=== PATIENT | male | born 1960 | race Caucasian/White ===

== ENCOUNTER 2023-06-14 19:13 | Inpatient (IN) | payer BC, SELFPAY ==
--- NOTE | ~2023-06-14 | CT_ITS ---
EXAMINATION: CT LE RT wo con DATE: 06/14/2023 23:02 INDICATION: Right hip periprosthetic fracture TECHNIQUE: High resolution computed tomography (CT) of the right hip was performed without intravenou s contrast. Additional sagittal and coronal reconstructions were performed. Automated exposure contro l and iterative reconstruction technique were employed. The dose-length product was 999.20 mGy-cm. COMPARISON: Radiograph dated 06/17/2023 FINDINGS: Noncemented right total hip arthroplasty. The acetabular component is affixed with 2 screws and remai ns well seated. No fracture in the visualized pelvis. There is a comminuted intratrochanteric/subtroc hanteric fracture of the proximal right femur. The lesser trochanter remains contiguous with the more distal femoral diaphysis with no evident loosening of the stem of the femoral component. There are s ubtle nondisplaced fracture planes involving the greater trochanter which remains minimally displaced relative to the femoral component of the arthroplasty and the main more distal fracture fragment. Th ere are 2 fragments involving the anteromedial aspect of the greater trochanter and the anterolateral intratrochanteric proximal femur which are both displaced and angulated mildly anteriorly which acco unt for the displacement described along the caudal margin of the fracture on the prior radiographs. No other fractures identified along the more distal femur. No right hip or knee joint effusion. No si gnificant hematoma. Postoperative change of a midline anterior pelvic ventral hernia mesh repair. Sal dder and visualized portion of the bowels are unremarkable. No pathologically enlarged right pelvic o r inguinal lymphadenopathy. IMPRESSION: 1. Nonspecific right total hip arthroplasty with comminuted intratrochanteric/subtrochanteric peripro sthetic fracture of the proximal right femur as detailed above. Reviewed, dictated and finalized at location A. NT CAREGIVER IMPRESSION: 1. Nonspecific right total hip arthroplasty with comminuted intratrochanteric/s ubtrochanteric periprosthetic fracture of the proximal right femur as detailed above.
--- NOTE | ~2023-06-14 | XR_ITS ---
EXAMINATION: XR hip RT 2V w AP pelvis, XR femur RT min 2V DATE: 06/14/2023 20:27 INDICATION: Right hip and femur pain post fall TECHNIQUE: 1. Anteroposterior view of the pelvis and anteroposterior and cross-table lateral views of the right hip were obtained. 2. AP and lateral views of the right femur were obtained on overlapping proximal and distal images. COMPARISON: None. FINDINGS: Bilateral noncemented total hip arthroplasties. There is an intertrochanteric periprosthetic fracture at the proximal right femur. There is 6 degrees varus angulation of the femoral diaphysis which morgan ins contiguous with the lesser trochanter relative to the likely loose greater trochanteric fragment. There is 2 cm anterolateral displacement of the caudal margin of the greater trochanteric fragment. No other fractures identified. There is mild joint space narrowing at the medial compartment of the r ight knee and small marginal osteophytes at the lateral and patellofemoral compartments consistent wi th at least mild tricompartmental osteoarthritis. Mild lower lumbar dextrocurvature with mild to mode rate spondylosis. IMPRESSION: 1. Bilateral total hip arthroplasties with intratrochanteric periprosthetic fracture at the proximal right femur with displacement and mild angulation of the greater trochanteric fragment. Reviewed, dictated and finalized at location A. TRATOR IMPRESSION: 1. Bilateral total hip arthroplasties with intratrochanteric periprosthetic fra cture at the proximal right femur with displacement and mild angulation of the greater trochanteric fragment.
--- NOTE | ~2023-06-14 | XR_ITS ---
EXAMINATION: XR chest 1V DATE: 06/14/2023 20:27 INDICATION: Femur fracture post fall TECHNIQUE: frontal view of the chest was obtained. COMPARISON: None FINDINGS: The lungs are clear with no focal airspace opacities, pulmonary edema, pleural effusion or pneumothor ax. Heart size is normal. There are bridging osteophytes at multiple levels in the spine consistent w ith diffuse idiopathic skeletal hyperostosis (DISH). IMPRESSION: 1. No acute cardiopulmonary disease. Reviewed, dictated and finalized at location A. SFORMATION ARCHITECT
[2023-06-14 19:14] VITALS: BP 159/81; PULSE 100; RESP 20; TEMP 36.3; O2SAT 100
[2023-06-14] MEDS: HYDROmorphone HCL INJ (*CRX) 1 MG/ML SYR 0.5 MG IV PUSH ×2 (21:40→22:47)
[2023-06-14] MEDS: ONDANSETRON INJ 4 MG/2 ML VIAL IV PUSH (21:40)
[2023-06-14 21:44] VITALS: BP 133/81; PULSE 107; RESP 18; O2SAT 99
[2023-06-14 22:05] LABS: Basophils Absolute Auto 0.1 K/mm3 (0.0-0.1); Basophils Percent Auto 0.6 % (0.2-1.2); Hematocrit 36.4 % (42.0-52.0); Hemoglobin 12.4 g/dL (14.0-18.0); Immature Granulocyte Absolute 0.02 K/mm3 (0.00-0.031); Immature Granulocyte Percent A 0.3 % (0-0.5); Immature Platelet Fraction Pct 9.1 % (0.9-11.2); Lymphocytes Absolute Auto 1.83 K/mm3 (0.9-3.2); Lymphocytes Percent Auto 23.5 % (18.3-44.2); Mean Corpuscular HGB Conc 34.1 g/dl (32-36); Mean Corpuscular Hemoglobin 37.3 pg (26-34); Mean Corpuscular Volume 109.6 fl (80-100); Mean Platelet Volume 10.2 fl (7.4-10.4); Monocytes Absolute Auto 1.1 K/mm3 (0.1-0.6); Monocytes Percent Auto 14.1 % (2.6-8.5); Neutrophils Absolute Auto 4.8 K/mm3 (1.3-6.7); Neutrophils Percent Auto 61.5 % (45.5-73.1); Platelet Count Result 88 k/mm3 (150-375); Red Blood Count 3.32 M/mm3 (4.6-6.20); Red Cell Distribution Width 11.7 % (11.5-14.5); White Blood Count 7.8 K/mm3 (4.5-10.0)
--- NOTE | 2023-06-14 22:15 | ED.GENADULT ---
[facility] - General Adult General Chief complaint: Extremity Injury, Lower Stated complaint: fall, R hip pain Time Seen by Provider: 06/14/23 21:06 Source: patient Mode of arrival: ambulatory Limitations: no limitations History of Present Illness [facility] narrative: This is a 62-year-old male who presents to the ED for chief complaint of right hip injury that occurred last night. Patient reports that he stepped back off the curb and fell directly back onto the right lateral hip. Reports he has had a bilateral right and left hip replacements done 20+ years ago. Reports pain to the right hip but no further injury. Denies any numbness or weakness. Denies fevers, chills, nausea, vomiting. After interviewing the patient, stepped out with the family member, daughter. She advises that the patient is a daily drinker and never goes to the doctor. No known medical history. Related Data Home Medications Medication Instructions Recorded Confirmed No Home Medications 06/15/23 06/15/23 Allergies Allergy/AdvReac Type Severity Reaction Status Date / Time No Known Allergies Allergy Verified 06/14/23 20:41 Review of Systems Review of Systems: All systems as dictated in [facility] Social History Social History Smoking status: Never smoker Alcohol intake: current Drinks per week: 16 Substance use: current Substance use type: marijuana Do You Feel Safe in your Home?: Yes Lack of Transportation: No Lack of Food: Never True Current Housing: I Have Housing Concerned About Future Housing: No Difficulty Paying Gas/Electric Bills: No Difficulty Paying for Meds: No Currently Unemployed: No Education: High School Diploma/GED Difficulty w/ Childcare or Family Care: No Spiritual care concerns: No Exam Narrative: GENERAL: Well-appearing, well-nourished, and in no acute distress. HEAD: Normocephalic, atraumatic. EYES: PERRLA and EOMI. ENT: Nares clear, no rhinorrhea or epistaxis. Mucous membranes moist. Oropharynx without tonsillar hypertrophy exudate or other lesions. NECK: Supple. No adenopathy or masses. CHEST: No respiratory distress. Clear to auscultation. No wheezes rales or rhonchi HEART: Regular rate and rhythm. No murmur heard. Normal peripheral pulses. ABDOMEN: Soft, nontender, nondistended, normal active bowel sounds. MSK: Significant pain with any motion of the right lower extremity. Neurovascularly intact distally. No significant leg-length change. Left lower extremity benign. Normal range of motion. No edema. SKIN: Warm, dry, no rash. NEURO: Alert and oriented x3. No focal deficits. PSYCH: Normal mood and affect. Course Course Emergency Course: Consult on-call Orthopedics, Dr. Sands. He was able to view the x-rays and does feel that the joint looks stable overall. Recommends contacting Dr. Marino since this was the patient's return surgeon. Consult Orthopedic, Dr. Marino: He was also able to view the x-rays. He is seeing some questionable findings of osteolysis and feels that the patient may need a higher level care with possible operation of this joint. Consult orthopedics, Dr. Vera: He was able to view the images and states that the joint looks very stable. He would recommend CT scan but does not feel the patient would need urgent operation unless the CT scan showed significant instability. Consult orthopedics, Dr. Sands again. He is comfortable with having the patient admitted here for pain control and PT OT. Recommends admission to the hospitalist with history of alcoholism and possible withdrawals. Consult Dr. Garcia (hospitalist): Recommends admission under their service. Agrees with starting Librium here and continuing CIWA protocol. Vital Signs Vital signs: Vital Signs Temperature 97.3 F L 06/14/23 19:14 Pulse Rate 100 06/14/23 19:14 Respiratory Rate 20 06/14/23 19:14 Blood Pressure 159/81 H 06/14/23 19:14 Pulse Oximetry 100 06/14/23
[2023-06-14 22:16] LABS: INR 1.1; Prothrombin Time 14.6 Seconds (11.1-14.7)
[2023-06-14 22:17] LABS: Hypochromasia 1+ (NORMAL); Ovalocytes 1+ (NORMAL); Platelet Estimate Decreased (Adequate); Schistocytes None Seen (NORMAL)
[2023-06-14 22:43] LABS: Alanine Aminotransferase 52 U/L (6-50); Albumin Level 4.1 g/dL (3.5-5.1); Alkaline Phosphatase 67 U/L (38-126); Anion Gap 18 mmol/L (8-16); Aspartate Amino Transferase 107 U/L (17-59); Bilirubin,Total 1.6 mg/dL (0.2-1.3); Blood Urea Nitrogen 12 mg/dL (9-20); Carbon Dioxide 18 mmol/L (22-30); Chloride 98 mmol/L (98-107); Estimated CRCL calculation 108 ml/min; Estimated Glomerular Filt Rate > 60; Glucose 91 mg/dL (65-110); Sodium 134 mmol/L (137-145)
--- NOTE | 2023-06-14 23:02 | PM.IMHP ---
H&P: HPI History of Present Illness Date/Time: 06/14/23 23:02 Chief Complaint: Right hip pain, fall Narrative: This is a 62-year-old male with history of significant alcohol use who presents to the ED for chief complaint of right hip injury that occurred last night.? Patient reports that he stepped back off the curb and fell directly back onto the right lateral hip.? And since this incident, he has unbearable right hip pain, he tried to be await twice but now is not possible, pain is worsened by movement of the right hip, denied hitting his head or losing consciousness, denied back pain or pain in any other part of his body. reports he has had a bilateral right and left hip replacements done 20+ years ago.? Reports pain to the right hip but no further injury.? Denies any numbness or weakness.? Denies fevers, chills, nausea, vomiting. He was evaluated in the ER and found to have right periprosthetic intertrochanteric fracture of the right femoral, orthopedic was consulted at high level and after reviewing his imaging stated the patient would not any operative intervention as fracture is pretty stable, and this was agreeable to orthopedic in of facility, I was called to admit this patient for pain control. Patient reported pain of 8/10, just received Dilaudid, denied any other symptoms Review of Systems Review of Systems: All systems reviewed & are unremarkable except as noted in HPI and below Meds Home Medications and Allergies Allergies Allergy/AdvReac Type Severity Reaction Status Date / Time No Known Allergies Allergy Verified 06/14/23 20:41 Vital Signs Vital Signs - 24 hr 06/14/23 19:14 06/14/23 21:44 Temperature 97.3 F L Pulse Rate 100 107 H Respiratory Rate 20 18 Blood Pressure 159/81 H 133/81 Pulse Oximetry 100 99 Oxygen Delivery Room Air Exam Narrative: GENERAL: Well-appearing, well-nourished, and in no acute distress. HEAD: Normocephalic, atraumatic. EYES: PERRLA and EOMI. ENT: Nares clear, no rhinorrhea or epistaxis.? Mucous membranes moist.? Oropharynx without tonsillar hypertrophy exudate or other lesions. NECK: Supple.? No adenopathy or masses.? CHEST: No respiratory distress. Clear to auscultation. No wheezes rales or rhonchi HEART: Regular rate and rhythm.? No murmur heard.? Normal peripheral pulses. ABDOMEN: Soft, nontender, nondistended, normal active bowel sounds. MSK: Significant restriction range of motion on the right lower extremity due to pain. Sensation and circulation intact on the right lower extremity SKIN: Warm, dry, no rash. NEURO: Alert and oriented x3. No focal deficits.? PSYCH: Normal mood and affect. ? H&P: Results Labs Labs: Short CBC 06/14/23 Range/Units 21:58 WBC 7.8 (4.5-10.0) K/mm3 Hgb 12.4 L (14.0-18.0) g/dL Hct 36.4 L (42.0-52.0) % Plt Count 88 L (150-375) k/mm3 BMP 06/14/23 21:58 Sodium 134 L Chloride 98 Carbon Dioxide 18 L BUN 12 Creatinine 0.60 L Glucose 91 Calcium 9.0 Liver Function 06/14/23 Range/Units 21:58 Total Bilirubin 1.6 H (0.2-1.3) mg/dL AST 107 H (17-59) U/L ALT 52 H (6-50) U/L Alkaline Phosphatase 67 (38-126) U/L Albumin 4.1 (3.5-5.1) g/dL Imaging ct pelvis: Radiologist's impression: IMPRESSION: 1. Nonspecific right total hip arthroplasty with comminuted intratrochanteric/subtrochanteric periprosthetic fracture of the proximal right femur as detailed above. Assessment and Plan Assessment and plan (1) Periprosthetic fracture around internal prosthetic right hip joint, initial encounter: Code(s): M97.01XA - Periprosthetic fracture around internal prosthetic right hip joint, initial encounter Status: Acute (2) Intractable pain: Code(s): R52 - Pain, unspecified Status: Acute (3) History of alcohol use: Code(s): Z87.898 - Personal history of other specified conditions Status: Acute Plan Patient will be admitted for pain cont
[2023-06-14] MEDS: chlordiazePOXIDE (*CRX) 25 MG CAPSULE PO (23:12)
[2023-06-14 23:21] LABS: Potassium 3.8 mmol/L (3.4-5.0)
[2023-06-14] MEDS: SODIUM CHLORIDE 0.9% IV 1,000 ML 999 ML IV CONT (23:21)
[2023-06-14 23:25] LABS: Fractional Inspired Oxygen 21 %; HCO3 VBG 18.6 mEq/l (24.0-30.0); PO2 VBG 53.1 mmHg (35.0-45.0)
[2023-06-14 23:28] LABS: pH VBG 7.454 (7.300-7.400)
[2023-06-14 23:29] LABS: Device ROOM AIR; PCO2 VBG 27.1 mmHg (42.0-48.0)
[2023-06-15] VITALS (12 sets, daily range): BP systolic 133–143; BP diastolic 67–83; PULSE 65–167; RESP 19–22; TEMP 36.4–38.1; O2SAT 97–100; BMI 29.5
[2023-06-15] MEDS: HYDROcodone/acetaminophen (*CRX) 5-325 MG TABLET 1 TAB PO ×5 (00:37→23:47)
[2023-06-15] MEDS: HYDROmorphone HCL INJ (*CRX) 1 MG/ML SYR IV PUSH ×5 (00:38→20:13)
[2023-06-15] MEDS: SODIUM CHLORIDE 0.9% IV 1,000 ML 999 ML IV CONT (00:39)
[2023-06-15] MEDS: SODIUM CHLORIDE 0.9% IV 1,000 ML 125 ML IV CONT ×3 (00:39→19:50)
[2023-06-15] MEDS: ONDANSETRON INJ 4 MG/2 ML VIAL IV PUSH ×6 (01:00→23:51)
[2023-06-15 05:04] LABS: Appearance Urine Clear (Clear); Bacteria Urine None Seen /hpf; Bilirubin Urine Negative (Negative); Blood Urine Negative (Negative); Color Urine Dark Yellow (Yellow); Glucose Urine UA Negative (Negative); Ketones Urine 4+ mg/dL (Negative); Leukocyte Esterase Ur Negative LEU/UL (Negative); Nitrate Urine Negative (Negative); Protein Urine Trace mg/dL (Negative); RBC Urine 0-2 /hpf (0-2); Specific Grav Ur 1.024 (1.001-1.035); Squamous Epithelial Cell Urine Occasional /hpf (Few); WBC Urine 0-5 /hpf; pH Urine 5.5 (5.0-9.0)
[2023-06-15 05:05] LABS: Add Urine Microscopic? YES
[2023-06-15 06:19] LABS: Basophils Percent Auto 0.7 % (0.2-1.2); Eosinophils Percent Auto 0.2 % (0-4.4); Hematocrit 32.8 % (42.0-52.0); Hemoglobin 10.8 g/dL (14.0-18.0); Immature Granulocyte Absolute 0.02 K/mm3 (0.00-0.031); Immature Granulocyte Percent A 0.4 % (0-0.5); Immature Platelet Fraction Pct 10.4 % (0.9-11.2); Lymphocytes Absolute Auto 1.31 K/mm3 (0.9-3.2); Lymphocytes Percent Auto 24.4 % (18.3-44.2); Mean Corpuscular HGB Conc 32.9 g/dl (32-36); Mean Corpuscular Hemoglobin 37.6 pg (26-34); Mean Corpuscular Volume 114.3 fl (80-100); Mean Platelet Volume 11.2 fl (7.4-10.4); Monocytes Absolute Auto 0.8 K/mm3 (0.1-0.6); Monocytes Percent Auto 14.9 % (2.6-8.5); Neutrophils Absolute Auto 3.2 K/mm3 (1.3-6.7); Neutrophils Percent Auto 59.4 % (45.5-73.1); Platelet Count Result 74 k/mm3 (150-375); Red Blood Count 2.87 M/mm3 (4.6-6.20); Red Cell Distribution Width 11.8 % (11.5-14.5); White Blood Count 5.4 K/mm3 (4.5-10.0)
[2023-06-15 06:29] LABS: Anion Gap 12 mmol/L (8-16); Blood Urea Nitrogen 11 mg/dL (9-20); Calcium 7.8 mg/dL (8.4-10.2); Carbon Dioxide 22 mmol/L (22-30); Chloride 100 mmol/L (98-107); Estimated CRCL calculation 108 ml/min; Estimated Glomerular Filt Rate > 60; Glucose 101 mg/dL (65-110); Potassium 4.2 mmol/L (3.4-5.0); Sodium 134 mmol/L (137-145)
[2023-06-15] MEDS: THIAMINE HCL 100 MG TABLET PO (07:36)
[2023-06-15] MEDS: chlordiazePOXIDE (*CRX) 25 MG CAPSULE PO ×2 (07:36→15:19)
--- NOTE | 2023-06-15 07:55 | PM.CNOR ---
Assessment and Plan Assessment and plan (1) Periprosthetic fracture around internal prosthetic right hip joint, initial encounter: Code(s): M97.01XA - Periprosthetic fracture around internal prosthetic right hip joint, initial encounter Status: Acute Assessment and Plan: Fall 2 nights ago with right proximal femur periprosthetic fracture. Arthroplasty performed 20 years ago. No problems prior to the incident. Comminuted fracture of the greater trochanter. Discussed with [facility] orthopedic reconstructive team who recommended CT scan. CT scan performed last night which showed comminuted fracture involving mainly the greater trochanter. Femoral stem appears to be well seated and fixed with no loosening. The medial aspect of the femur, lesser trochanter and medial calcar appear to be intact to the distal femur. Patient is high surgical risk given history and rehab potential. High risk for infection. At this time the fracture appears amenable to non operative treatment. Evaluation by the reconstructive specialty surgery team at [facility] possibly an option if the patient desires. At this point pain control seems to be the main issue. We will try to mobilize as tolerated with PT/OT. Would expect healing time over the next 6 weeks. Will need close follow-up to evaluate hip arthroplasty for signs of loosening. History of Present Illness HPI Consult date: 06/15/23 Requesting physician: Kee Leos PA-C Chief complaint: R Hip Periprosthetic Fracture, Alcholism Narrative: 62-year-old gentleman who is 20 years status post right total hip arthroplasty who fell 2 nights ago. Was outside on a curb and fell onto the right hip. Right hip pain. Tried to take care of himself at home but when pain increased he presented to the emergency room. Found to have right proximal femur fracture. Admitted for further evaluation and care. Denies numbness or tingling. Denies other injury at time. Complains of right hip pain. Denies loss of consciousness. Review of Systems Constitutional: Constitutional: Denies fever(s) Eyes: Eyes: Denies blurry vision ENT: Reports Normal hearing present Cardiovascular: Cardiovascular: Denies chest pain and Denies dyspnea Respiratory: Respiratory: Denies dyspnea and Denies wheezing Gastrointestinal: Gastrointestinal: Denies abdominal pain Genitourinary: Genitourinary: Denies urinary urgency Musculoskeletal: Musculoskeletal: Reports as per HPI and Denies numbness Integumentary/Breasts: Skin/Breast: Denies changing lesions and Denies sores Neurologic: Reports Normal hearing present, Denies behavioral changes, Denies confusion, Denies numbness and Denies convulsions Psychiatric: Psychiatric: Denies behavioral changes, Denies confusion and Denies hallucinations Endocrine: Endocrine: Denies heat intolerance Hematologic/Lymphatic: Hematologic/Lymphatic: Denies easy bleeding Allergic/Immunologic: Allergic/Immunologic: Denies wheezing PMFSH Social History Social History Smoking status: Never smoker Alcohol intake: current Drinks per week: 16 Substance use: current Substance use type: marijuana Do You Feel Safe in your Home?: Yes Lack of Transportation: No Lack of Food: Never True Current Housing: I Have Housing Concerned About Future Housing: No Difficulty Paying Gas/Electric Bills: No Difficulty Paying for Meds: No Currently Unemployed: No Education: High School Diploma/GED Difficulty w/ Childcare or Family Care: No Spiritual care concerns: No Meds Home Medications and Allergies Home Medications Medication Instructions Recorded Confirmed Type No Home Medications 06/15/23 06/15/23 History Allergies Allergy/AdvReac Type Severity Reaction Status Date / Time No Known Allergies Allergy Verified 06/14/23 20:41 Vital Signs Vital Signs - 24 hr 06/14/23 19:14 06/14/23 21:44 06/15
--- NOTE | 2023-06-15 12:58 | PM.IMPN ---
Progress Note: A&P Assessment and Plan (1) Periprosthetic fracture around internal prosthetic right hip joint, initial encounter: Code(s): M97.01XA - Periprosthetic fracture around internal prosthetic right hip joint, initial encounter Status: Acute Assessment and Plan: Patient lost his balance and had a fall resulting in a right periprosthetic intertrochanteric fracture of right frmur. Orthopedics consulted. Due to high surgical wrist will do non operative management at this time. ?Evaluation by the reconstructive specialty surgery team at [facility] possibly an option if the patient desires. PT and OT ordered. Analgesics as needed weight-bearing as tolerated (2) Intractable pain: Code(s): R52 - Pain, unspecified Status: Acute Assessment and Plan: SEE ABOVE (3) History of alcohol use: Code(s): Z87.898 - Personal history of other specified conditions Status: Acute Assessment and Plan: Since patient has history of significant alcohol use, he has been started on Librium for CIWA score greater than 12 Ativan for CIWA off between 8 and 12 CIWA monitoring scoring. Subjective Date/time seen: 06/15/23 12:58 Interval history: Patient still having a pretty significant amount of pain. he is working with PT and OT today. I suspect the patient will likely need some type of rehab. Weightbearing status is as tolerated. Patient denying any numbness or tingling in his foot or leg. Exam Narrative: GENERAL: Comfortable, no acute distress HENMT: moist mucous membranes EYES: EOM intact b/l NECK: no lymphadenopathy RESPIRATORY: clear to auscultation CARDIO: RRR GI: soft, nontender, bowel sounds present SKIN: no rashes EXTREMITIES: Minimal movement of her right leg Objective Data Vital Signs Vital Signs: Vital Signs - 24 hr 06/14/23 19:14 06/14/23 21:44 06/15/23 00:44 Temperature 97.3 F L 100.6 F H Pulse Rate 100 107 H 82 Respiratory Rate 20 18 19 Blood Pressure 159/81 H 133/81 133/67 Pulse Oximetry 100 99 99 Oxygen Delivery Room Air 06/15/23 00:00 06/15/23 04:00 06/15/23 06:00 Temperature 97.5 F L Pulse Rate 68 76 Respiratory Rate 19 Blood Pressure 136/73 Pulse Oximetry 99 100 Oxygen Delivery Room Air Intake/Output Intake/Output: Intake & Output 06/12/23 06/13/23 06/14/23 06/15/23 23:59 23:59 23:59 23:59 Intake Total 2840 Output Total 450 Balance 2390 Meds/Results Medications: Active Medications Generic Name Dose Route Start Last Admin Trade Name Freq PRN Reason Stop Dose Admin Hydrocodone Bitart/Acetaminophen 1 tab 06/14/23 23:32 06/15/23 12:19 Hydrocodone/Acetaminophen (*Crx) 5-325 Mg Tablet PO 1 tab Q6H PRN Administration Pain Rated 4-6 Chlordiazepoxide HCl 25 mg 06/14/23 23:02 06/15/23 07:36 Chlordiazepoxide (*Crx) 25 Mg Capsule PO 25 mg Q6H PRN Administration Withdrawal Hydromorphone HCl 1 mg 06/15/23 00:27 06/15/23 09:59 Hydromorphone Hcl Inj (*Crx) 1 Mg/Ml Syr IV PUSH 1 mg Q4H PRN Administration Pain Rated 7-10 Sodium Chloride 1,000 mls @ 125 mls/hr 06/14/23 23:00 06/15/23 10:07 Normal Saline Iv IV CONT 125 mls/hr .Q8H FERNANDO Administration Ondansetron HCl 4 mg 06/14/23 22:59 06/15/23 12:18 Ondansetron Inj 4 Mg/2 Ml Vial IV PUSH 4 mg Q4H PRN Administration Nausea Thiamine HCl 100 mg 06/15/23 09:00 06/15/23 07:36 Thiamine Hcl 100 Mg Tablet PO 100 mg QAM FERNANDO Administration Radiology Results: ITS Impressions Femur X-Ray 06/14/23 20:42 IMPRESSION: 1. Bilateral total hip arthroplasties with intratrochanteric periprosthetic fracture at the proximal right femur with displacement and mild angulation of the greater trochanteric fragment. Hip/Pelvis X-Ray 06/14/23 20:42
[2023-06-16] VITALS (11 sets, daily range): BP systolic 133–161; BP diastolic 70–78; PULSE 72–96; RESP 18–20; TEMP 35.7–37.2; O2SAT 96–100
[2023-06-16] MEDS: SODIUM CHLORIDE 0.9% IV 1,000 ML 125 ML IV CONT (03:36)
[2023-06-16] MEDS: HYDROmorphone HCL INJ (*CRX) 1 MG/ML SYR IV PUSH ×2 (03:37→11:09)
[2023-06-16 06:04] LABS: Hemoglobin 9.9 g/dL (14.0-18.0); Immature Platelet Fraction Pct 12.3 % (0.9-11.2); Mean Corpuscular HGB Conc 34.1 g/dl (32-36); Mean Corpuscular Hemoglobin 37.9 pg (26-34); Mean Corpuscular Volume 111.1 fl (80-100); Mean Platelet Volume 11.2 fl (7.4-10.4); Platelet Count Result 58 k/mm3 (150-375); Red Blood Count 2.61 M/mm3 (4.6-6.20); Red Cell Distribution Width 11.4 % (11.5-14.5); White Blood Count 3.7 K/mm3 (4.5-10.0)
[2023-06-16 06:26] LABS: Anion Gap 3 mmol/L (8-16); Blood Urea Nitrogen 6 mg/dL (9-20); Calcium 8.2 mg/dL (8.4-10.2); Carbon Dioxide 28 mmol/L (22-30); Chloride 100 mmol/L (98-107); Estimated CRCL calculation 128 ml/min; Estimated Glomerular Filt Rate > 60; Glucose 109 mg/dL (65-110); Potassium 3.5 mmol/L (3.4-5.0); Sodium 131 mmol/L (137-145)
[2023-06-16] MEDS: HYDROcodone/acetaminophen (*CRX) 5-325 MG TABLET 1 TAB PO ×2 (06:39→13:23)
[2023-06-16] MEDS: THIAMINE HCL 100 MG TABLET PO (08:14)
--- NOTE | 2023-06-16 12:38 | PM.PNORT ---
Progress Note: A&P Assessment and Plan (1) Periprosthetic fracture around internal prosthetic right hip joint, initial encounter: Code(s): M97.01XA - Periprosthetic fracture around internal prosthetic right hip joint, initial encounter Status: Acute Assessment and Plan: History, exam and CT scan reviewed. Radiographs reveal a comminuted fracture of the greater trochanter. CT scan showed comminuted fracture involving mainly the greater trochanter. Femoral stem appears to be well seated and fixed with no loosening. The medial aspect of the femur, lesser trochanter and medial calcar appear to be intact to the distal femur. Patient is high surgical risk given history and rehab potential. High risk for infection. Continue non operative treatment. PT/OT with [facility] Pain Control. Ice Dispo: Home when cleared by PT/OT and medicine team Follow up with our office in [address] Marino who performed surgery 22 years ago. May eventually require referral to [facility] orthopedics for reconstruction depending on progress. Time Spent With Patient Time: Reviewed history, exam, radiographs and current labs with attending MD and covering surgeon, Dr. Sands, who agrees with current plan as indicated above. No further recommendations from Dr. Sands at this time. Subjective Subjective Date/Time Seen: 06/16/23 12:38 Interval history: Patient doing well. Eating at time of exam. No new concerns. Does not feel ready to discharge but is overall feeling better. Review of Systems Constitutional: Constitutional: Denies fever(s) Eyes: Eyes: Denies blurry vision ENT: Reports Normal hearing present Cardiovascular: Cardiovascular: Denies chest pain and Denies dyspnea Respiratory: Respiratory: Denies dyspnea and Denies wheezing Gastrointestinal: Gastrointestinal: Denies abdominal pain Genitourinary: Genitourinary: Denies urinary urgency Musculoskeletal: Musculoskeletal: Reports as per HPI and Denies numbness Integumentary/Breasts: Skin/Breast: Denies changing lesions and Denies sores Neurologic: Reports Normal hearing present, Denies behavioral changes, Denies confusion, Denies numbness and Denies convulsions Psychiatric: Psychiatric: Denies behavioral changes, Denies confusion and Denies hallucinations Endocrine: Endocrine: Denies heat intolerance Hematologic/Lymphatic: Hematologic/Lymphatic: Denies easy bleeding Allergic/Immunologic: Allergic/Immunologic: Denies wheezing Exam Const: General: No confusion Orientation/consciousness: patient oriented x3 and No confusion HENMT: Head: normal to inspection, normocephalic and atraumatic Eyes: Conjunctivae: conjunctivae normal Sclera: sclerae normal Neck: Neck: supple and nontender Chest: Chest palpation & inspection: normal inspection of the chest Resp: Effort & Inspection: normal respiratory effort and no audible wheezes Cardio: Rate: regular rate Rhythm: regular rhythm GI: GI Palp: No abdominal tenderness and Yes Soft to palpation : General: Yes deferred Skin: General skin exam: no rashes or lesions noted Neuro: General: patient oriented x3 and No confusion Extrem: General: capillary refill normal Right upper extremity: normal to inspection Left upper extremity: normal to inspection Right lower extremity: hip/thigh Details: tenderness Location: of the hip Location: laterally and swelling Location: at the hip ( mild), ankle ( able to actively flex and extend ankle) Details: no tenderness and foot Details: normal capillary refill, toes with normal ROM, vascular exam Details: dorsalis pedis pulse present and normal capillary refill and motor-sensory exam Details: light-touch normal Location: in all toes; no tenderness Left lower extremity: normal to inspection, hip/thigh Details: no tenderness and no swelling, lower leg, ankle (no calf tenderness) Details: normal ROM; no tenderness and foot Details: normal capillary refill, vascular exam D
--- NOTE | 2023-06-16 14:34 | PM.IMPN ---
Progress Note: A&P Assessment and Plan (1) Periprosthetic fracture around internal prosthetic right hip joint, initial encounter: Code(s): M97.01XA - Periprosthetic fracture around internal prosthetic right hip joint, initial encounter Status: Acute Assessment and Plan: Patient lost his balance and had a fall resulting in a right periprosthetic intertrochanteric fracture of right frmur. Orthopedics consulted. Due to high surgical wrist will do non operative management at this time. Evaluation by the reconstructive specialty surgery team at [facility] possibly an option if the patient desires. PT and OT ordered. Analgesics as needed. encourage p.o. rather than IV. weight-bearing as tolerated (2) Intractable pain: Code(s): R52 - Pain, unspecified Status: Acute Assessment and Plan: SEE ABOVE (3) History of alcohol use: Code(s): Z87.898 - Personal history of other specified conditions Status: Acute Assessment and Plan: Since patient has history of significant alcohol use, he has been started on Librium for CIWA score greater than 12 Ativan for CIWA off between 8 and 12 CIWA monitoring scoring. Subjective Date/time seen: 06/16/23 14:34 Interval history: Patient continued to have pain and requiring IV pain medication. Transition him to p.o. medication with IV breakthrough pain. Discussion with care coordination about patient's discharge planning and as of right now patient will be discharged home. He is declining home health at this time. he denies any paresthesias or tingling in his lower extremities, chest pain, shortness a breath, nausea or vomiting. Exam Narrative: GENERAL: Comfortable, no acute distress HENMT: moist mucous membranes EYES: EOM intact b/l NECK: no lymphadenopathy RESPIRATORY: clear to auscultation CARDIO: RRR GI: soft, nontender, bowel sounds present SKIN: no rashes EXTREMITIES: Minimal movement of her right leg Objective Data Vital Signs Vital Signs: Vital Signs - 24 hr 06/15/23 15:19 06/15/23 16:19 06/15/23 16:00 Temperature Pulse Rate 71 Pulse Rate [Monitor] 167 H Respiratory Rate Blood Pressure Pulse Oximetry Oxygen Delivery Room Air 06/15/23 20:10 06/15/23 20:10 06/15/23 20:02 Temperature Pulse Rate 72 Pulse Rate [Monitor] 73 Respiratory Rate Blood Pressure 142/83 H Pulse Oximetry Oxygen Delivery Room Air 06/15/23 21:44 06/16/23 00:02 06/16/23 04:19 Temperature 97.8 F Pulse Rate 69 72 77 Pulse Rate [Monitor] Respiratory Rate 20 Blood Pressure 143/71 H Pulse Oximetry 98 Oxygen Delivery 06/16/23 04:00 06/16/23 06:00 06/16/23 08:10 Temperature 97.8 F Pulse Rate 80 Pulse Rate [Monitor] 73 88 Respiratory Rate 18 Blood Pressure 143/71 H 133/71 137/70 Pulse Oximetry 96 Oxygen Delivery 06/16/23 08:10 Temperature Pulse Rate Pulse Rate [Monitor] Respiratory Rate Blood Pressure Pulse Oximetry Oxygen Delivery Room Air Intake/Output Intake/Output: Intake & Output 06/13/23 06/14/23 06/15/23 06/16/23 23:59 23:59 23:59 23:59 Intake Total 4080 2958 Output Total 1850 1300 Balance 2230 1658 Meds/Results Medications: Active Medications Generic Name Dose Route Start Last Admin Trade Name Freq PRN Reason Stop Dose Admin Hydrocodone Bitart/Acetaminophen 1 tab 06/14/23 23:32 06/16/23 13:23 Hydrocodone/Acetaminophen (*Crx) 5-325 Mg Tablet PO 1 tab Q6H PRN Administration Pain Rated 4-6 Chlordiazepoxide HCl 25 mg 06/14/23 23:02 06/15/23 15:19 Chlordiazepoxide (*Crx) 25 Mg Capsule PO 25 mg Q6H PRN Administration Withdrawal Hydromorphone HCl 1 mg 06/15/23 00:27 06/16/23 11:09 Hydromorphone Hcl Inj (*Crx) 1 Mg/Ml Syr IV PUSH 1 mg Q4H PRN Administration Pain Rated 7-10 Lorazepam 0.5 mg 06/15/23 13:04 Lorazepam Inj (*Crx) 2 Mg/Ml Vial IV
[2023-06-16] MEDS: oxyCODONE HCL (*CRX) 5 MG TAB IR PO ×2 (16:39→20:42)
[2023-06-17] VITALS (9 sets, daily range): BP systolic 130–142; BP diastolic 79–90; PULSE 81–105; RESP 14–16; TEMP 36.3–36.8; O2SAT 96–99
[2023-06-17] MEDS: oxyCODONE HCL (*CRX) 5 MG TAB IR PO ×4 (02:25→20:47)
[2023-06-17 06:46] LABS: Hematocrit 30.1 % (42.0-52.0); Hemoglobin 10.1 g/dL (14.0-18.0); Immature Platelet Fraction Pct 11.7 % (0.9-11.2); Mean Corpuscular HGB Conc 33.6 g/dl (32-36); Mean Corpuscular Hemoglobin 38.1 pg (26-34); Mean Corpuscular Volume 113.6 fl (80-100); Mean Platelet Volume 12.1 fl (7.4-10.4); Platelet Count Result 70 k/mm3 (150-375); Red Blood Count 2.65 M/mm3 (4.6-6.20); Red Cell Distribution Width 11.4 % (11.5-14.5); White Blood Count 4.1 K/mm3 (4.5-10.0)
[2023-06-17 06:58] LABS: Alanine Aminotransferase 28 U/L (6-50); Alkaline Phosphatase 56 U/L (38-126); Anion Gap 5 mmol/L (8-16); Aspartate Amino Transferase 55 U/L (17-59); Bilirubin,Total 1.1 mg/dL (0.2-1.3); Blood Urea Nitrogen 4 mg/dL (9-20); Calcium 8.6 mg/dL (8.4-10.2); Carbon Dioxide 29 mmol/L (22-30); Chloride 99 mmol/L (98-107); Estimated CRCL calculation 155 ml/min; Estimated Glomerular Filt Rate > 60; Glucose 109 mg/dL (65-110); Potassium 3.2 mmol/L (3.4-5.0); Sodium 133 mmol/L (137-145)
--- NOTE | 2023-06-17 09:51 | PM.PNORT ---
Progress Note: A&P Assessment and Plan (1) Periprosthetic fracture around internal prosthetic right hip joint, initial encounter: Code(s): M97.01XA - Periprosthetic fracture around internal prosthetic right hip joint, initial encounter Status: Acute Assessment and Plan: History, exam and CT scan reviewed. Radiographs reveal a comminuted fracture of the greater trochanter. CT scan showed comminuted fracture involving mainly the greater trochanter. Femoral stem appears to be well seated and fixed with no loosening. The medial aspect of the femur, lesser trochanter and medial calcar appear to be intact to the distal femur. Patient is high surgical risk given history and rehab potential. High risk for infection. Continue non operative treatment. PT/OT with [facility]. Ice Dispo: Home when cleared by PT/OT and medicine team. Okay to d/c from orthopedic standpoint. Follow up with our office in [address] Marino who performed surgery 22 years ago. May eventually require referral to [facility] orthopedics for reconstruction depending on progress. Time Spent With Patient Time: Reviewed history, exam, radiographs and current labs with attending MD and covering surgeon, Dr. Sands, who agrees with current plan as indicated above. No further recommendations from Dr. Sands at this time. Subjective Subjective Date/Time Seen: 06/17/23 09:51 Interval history: Patient doing well. Eating at time of exam. No new concerns. He reports working veery well with PT/OT yesterday and doing a good amount of walking. He is now in more pain today due to this. Review of Systems Constitutional: Constitutional: Denies fever(s) Eyes: Eyes: Denies blurry vision ENT: Reports Normal hearing present Cardiovascular: Cardiovascular: Denies chest pain and Denies dyspnea Respiratory: Respiratory: Denies dyspnea and Denies wheezing Gastrointestinal: Gastrointestinal: Denies abdominal pain Genitourinary: Genitourinary: Denies urinary urgency Musculoskeletal: Musculoskeletal: Reports as per HPI and Denies numbness Integumentary/Breasts: Skin/Breast: Denies changing lesions and Denies sores Neurologic: Reports Normal hearing present, Denies behavioral changes, Denies confusion, Denies numbness and Denies convulsions Psychiatric: Psychiatric: Denies behavioral changes, Denies confusion and Denies hallucinations Endocrine: Endocrine: Denies heat intolerance Hematologic/Lymphatic: Hematologic/Lymphatic: Denies easy bleeding Allergic/Immunologic: Allergic/Immunologic: Denies wheezing Exam Const: General: No confusion Orientation/consciousness: patient oriented x3 and No confusion HENMT: Head: normal to inspection, normocephalic and atraumatic Eyes: Conjunctivae: conjunctivae normal Sclera: sclerae normal Neck: Neck: supple and nontender Chest: Chest palpation & inspection: normal inspection of the chest Resp: Effort & Inspection: normal respiratory effort and no audible wheezes Cardio: Rate: regular rate Rhythm: regular rhythm GI: GI Palp: No abdominal tenderness and Yes Soft to palpation : General: Yes deferred Skin: General skin exam: no rashes or lesions noted Neuro: General: patient oriented x3 and No confusion Extrem: General: capillary refill normal Right upper extremity: normal to inspection Left upper extremity: normal to inspection Right lower extremity: hip/thigh Details: tenderness Location: of the hip Location: laterally and swelling Location: at the hip ( mild), ankle ( able to actively flex and extend ankle) Details: no tenderness and foot Details: normal capillary refill, toes with normal ROM, vascular exam Details: dorsalis pedis pulse present and normal capillary refill and motor-sensory exam Details: light-touch normal Location: in all toes; no tenderness Left lower extremity: normal to inspection, hip/thigh Details: no tenderness and no swelling, lower leg, ankle (no calf ten
[2023-06-17] MEDS: polyethylene glycoL 3350 17 GM POWD.PACK PO (10:13)
[2023-06-17] MEDS: HYDROcodone/acetaminophen (*CRX) 5-325 MG TABLET 1 TAB PO ×3 (10:13→23:51)
[2023-06-17] MEDS: THIAMINE HCL 100 MG TABLET PO (10:13)
--- NOTE | 2023-06-17 14:11 | PM.IMPN ---
Progress Note: A&P Assessment and Plan (1) Periprosthetic fracture around internal prosthetic right hip joint, initial encounter: Code(s): M97.01XA - Periprosthetic fracture around internal prosthetic right hip joint, initial encounter Status: Acute Assessment and Plan: Patient lost his balance and had a fall resulting in a right periprosthetic intertrochanteric fracture of right frmur. Orthopedics consulted. Due to high surgical wrist will do non operative management at this time. Evaluation by the reconstructive specialty surgery team at [facility] possibly an option if the patient desires. PT and OT ordered. Analgesics as needed. encourage p.o. rather than IV. weight-bearing as tolerated (2) Intractable pain: Code(s): R52 - Pain, unspecified Status: Acute Assessment and Plan: SEE ABOVE (3) History of alcohol use: Code(s): Z87.898 - Personal history of other specified conditions Status: Acute Assessment and Plan: Since patient has history of significant alcohol use, he has been started on Librium for CIWA score greater than 12 Ativan for CIWA off between 8 and 12 CIWA monitoring scoring. Subjective Date/time seen: 06/17/23 14:11 Interval history: had another long discussion with patient about the importance of therapy. Patient was more open minded about this. Patient's daughters also promoting physical therapy for the patient. Discussed with care coordination and if patient is agreeable will be able to set up home health for the patient. Patient is working well with therapy but continues to exhibit quite a bit of pain. Plan for discharge tomorrow. Exam Narrative: GENERAL: Comfortable, no acute distress HENMT: moist mucous membranes EYES: EOM intact b/l NECK: no lymphadenopathy RESPIRATORY: clear to auscultation CARDIO: RRR GI: soft, nontender, bowel sounds present SKIN: no rashes EXTREMITIES: Minimal movement of her right leg Objective Data Vital Signs Vital Signs: Vital Signs - 24 hr 06/16/23 16:00 06/16/23 20:00 06/16/23 20:23 Temperature 98.9 F Pulse Rate 80 89 Respiratory Rate 18 Blood Pressure 161/78 H Pulse Oximetry 96 100 Oxygen Delivery Room Air 06/17/23 05:24 06/16/23 20:00 06/17/23 00:00 Temperature 97.6 F Pulse Rate 93 76 84 Respiratory Rate 16 Blood Pressure 132/79 Pulse Oximetry 99 Oxygen Delivery 06/17/23 04:00 06/17/23 08:00 Temperature Pulse Rate 81 Respiratory Rate Blood Pressure Pulse Oximetry Oxygen Delivery Room Air Intake/Output Intake/Output: Intake & Output 06/14/23 06/15/23 06/16/23 06/17/23 23:59 23:59 23:59 23:59 Intake Total 4080 3198 240 Output Total 1850 1450 3125 Balance 2230 5957 -9519 Meds/Results Medications: Active Medications Generic Name Dose Route Start Last Admin Trade Name Freq PRN Reason Stop Dose Admin Hydrocodone Bitart/Acetaminophen 1 tab 06/14/23 23:32 06/17/23 10:13 Hydrocodone/Acetaminophen (*Crx) 5-325 Mg Tablet PO 1 tab Q6H PRN Administration Pain Rated 4-6 Chlordiazepoxide HCl 25 mg 06/14/23 23:02 06/15/23 15:19 Chlordiazepoxide (*Crx) 25 Mg Capsule PO 25 mg Q6H PRN Administration Withdrawal Hydromorphone HCl 1 mg 06/16/23 14:38 Hydromorphone Hcl Inj (*Crx) 1 Mg/Ml Syr IV PUSH Q4H PRN Breakthrough Pain Lorazepam 0.5 mg 06/15/23 13:04 Lorazepam Inj (*Crx) 2 Mg/Ml Vial IV PUSH Q6H PRN Anxiety and/or withdrawl Ondansetron HCl 4 mg 06/14/23 22:59 06/15/23 23:51 Ondansetron Inj 4 Mg/2 Ml Vial IV PUSH 4 mg Q4H PRN Administration Nausea Oxycodone HCl 5 mg 06/16/23 14:37 06/17/23 13:21 Oxycodone Hcl (*Crx) 5 Mg Tab Ir PO 5 mg Q4H PRN Administration Pain Rated 7-10 Polyethylene Glycol 17 gm 06/17/23 09:00 06/17/23 10:13 Polyethylene Glycol 3350 17 Gm Powd.Pack PO 17 gm QAM FERNANDO Administr
[2023-06-17] MEDS: POTASSIUM CHLORIDE 20 MEQ ER TABLET 40 MEQ PO (16:32)
[2023-06-18] VITALS: PULSE 88
[2023-06-18] MEDS: oxyCODONE HCL (*CRX) 5 MG TAB IR PO ×3 (03:20→15:13)
[2023-06-18 04:00] VITALS: PULSE 81
[2023-06-18] MEDS: HYDROcodone/acetaminophen (*CRX) 5-325 MG TABLET 1 TAB PO ×2 (05:28→11:37)
[2023-06-18 05:29] VITALS: BP 123/82; PULSE 86; RESP 16; TEMP 36.6; O2SAT 100
[2023-06-18] MEDS: THIAMINE HCL 100 MG TABLET PO (07:59)
[2023-06-18] MEDS: polyethylene glycoL 3350 17 GM POWD.PACK PO (07:59)
[2023-06-18 08:00] VITALS: PULSE 85
[2023-06-18 12:00] VITALS: PULSE 98
--- NOTE | 2023-06-18 12:59 | P.DS_ITS ---
DS: Admitting Diagnosis Discharge Date 06/18/23 Admitting Diagnosis Right hip fracture DS: Discharge Diagnosis Discharge Diagnosis (1) Periprosthetic fracture around internal prosthetic right hip joint, initial encounter: Code(s): M97.01XA - Periprosthetic fracture around internal prosthetic right hip joint, initial encounter Status: Acute (2) Intractable pain: Code(s): R52 - Pain, unspecified Status: Acute (3) History of alcohol use: Code(s): Z87.898 - Personal history of other specified conditions Status: Acute DS: Summary Hospital Course Hospital Course: This is a 62-year-old male with a past medical history of alcohol abuse that presented to the ED due to right hip pain. Patient had lost his balance after stepping back off of a curb and falling directly onto his right hip. He has the history of bilateral hip replacements. He was found to have a right periprosthetic intertrochanteric fracture of the right femur. Orthopedic consulted. Orthopedics and patient agreed for non operative treatment. Patient was admitted for pain control. Patient worked with PT and OT while in the hospital. Patient denied resources for outpatient therapy. Patient was informed stabilized on p.o. pain medication and discharged back home. Follow-up with Ortho as an outpatient Time Spent with Patient Time attestation: Total time spent providing and/or coordinating discharge services: Exam Narrative: GENERAL: Comfortable, no acute distress HENMT: moist mucous membranes EYES: EOM intact b/l NECK: no lymphadenopathy RESPIRATORY: clear to auscultation CARDIO: RRR GI: soft, nontender, bowel sounds present SKIN: no rashes EXTREMITIES: Minimal movement of her right leg Discharge Plan Discharge Attending physician on discharge: Rehan Sales Consulting providers: Jeronimo Sands; Kee Leos Discharging Clinician: Nighat Thakkar Patient Disposition: Home Health Service Activity: may shower, no driving and follow weight bearing status Diet: as tolerated Wound Care Instructions: follow printed instructions Discharge Instructions: Care Coordination: Patient to have [facility] for PT/OT eval and treat, and chcf. Their phone number is [phone] and they will contact you to schedule their first visit. Orthopedic Recommendations Dr. Jeronimo Sands [phone] * Weight bearing as tolerated. * Fall Precautions. Walker. * Pain control. Ice. * Follow up appt indicated below. Patient Instructions: Antibiotic Form Stand Alone Forms: General Discharge Information Follow-up/Referrals: Jeronimo Sands MD [Physician] - 08/02/23 9:30 am Discharge Medications: New hydrocodone-acetaminophen 5-325 mg Tablet 1 - 2 tablet PO Q6-8H PRN (Reason: pain) Qty: 30 0RF Date of admission: 06/16/23 15:58 Primary Care Provider: Laura,Johnny Varma Admitting Provider: Barbara Garcia Attending physician on admission: Barbara Garcia Condition: Stable
[2023-06-18 14:00] VITALS: BP 118/76; PULSE 100; RESP 12; TEMP 36.7; O2SAT 98
== END 2023-06-18 15:30 | disposition home health service (06) | DRG 536 ==
LOC: ANHED 21:24 → ANH3MEDSUR 23:44
PROVIDERS: Admitting Provider Student in an Organized Health Care Education/Training Program; Emergency Provider Physician Assistant; PCP Internal Medicine; Visit Provider Internal Medicine Critical Care Medicine
DX: S72.114A Nondisplaced fracture of greater trochanter of right femur, initial encounter for closed fracture (principal); M97.01XA Periprosthetic fracture around internal prosthetic right hip joint, initial encounter; S72.21XA Displaced subtrochanteric fracture of right femur, initial encounter for closed fracture; W18.39XA Other fall on same level, initial encounter; Z96.643 Presence of artificial hip joint, bilateral; Z87.898 Personal history of other specified conditions
CPT/HCPCS: 36415; 71045; 73502; 73552; 73700; 80048; 80053; 81001; 82803; 85025; 85027; 85055; 85610; 85730; 96361; 96374; 96375; 96376; 97110; 97116; 97161; 97166; 97530; 97535; 99285; A9270; G0378; J1170; J2405; J7030

== ENCOUNTER 2023-06-21 10:29 | Outpatient (NON) | payer BC, SELFPAY ==
[2023-06-21 12:01] LABS: Anion Gap 5 mmol/L (8-16); Blood Urea Nitrogen 6 mg/dL (9-20); Calcium 9.1 mg/dL (8.4-10.2); Carbon Dioxide 25 mmol/L (22-30); Chloride 105 mmol/L (98-107); Estimated Glomerular Filt Rate > 60; Glucose 105 mg/dL (65-110); Potassium 3.7 mmol/L (3.4-5.0); Sodium 135 mmol/L (137-145)
== END 2023-06-21 10:30 | disposition home or self-care (01) ==
LOC: HOME HLTH 10:32
PROVIDERS: PCP Internal Medicine; Visit Provider Internal Medicine
DX: M97.01XA Periprosthetic fracture around internal prosthetic right hip joint, initial encounter (principal)
CPT/HCPCS: 80048

== ENCOUNTER 2023-07-06 16:58 | Outpatient (NON) | payer BC, SELFPAY ==
[2023-07-06 17:38] LABS: Appearance Urine Clear (Clear); Bilirubin Urine Negative (Negative); Blood Urine Negative (Negative); Color Urine Yellow (Yellow); Glucose Urine UA Negative (Negative); Ketones Urine Negative (Negative); Leukocyte Esterase Ur Negative LEU/UL (Negative); Nitrate Urine Negative (Negative); Protein Urine Negative (Negative); Specific Grav Ur 1.007 (1.001-1.035)
[2023-07-06 17:55] LABS: Add Urine Microscopic? NO
== END 2023-07-06 16:59 | disposition home or self-care (01) ==
LOC: HOME HLTH 17:00
PROVIDERS: PCP Internal Medicine; Visit Provider Internal Medicine
DX: M97.01XD Periprosthetic fracture around internal prosthetic right hip joint, subsequent encounter (principal); W18.39XD Other fall on same level, subsequent encounter; Z96.643 Presence of artificial hip joint, bilateral; Z87.898 Personal history of other specified conditions
CPT/HCPCS: 81003

== ENCOUNTER 2023-11-16 00:18 | Day surgery (SDC) | payer BC, SELFPAY ==
[2023-11-04 09:27] VITALS: BMI 26.2
[2023-11-16 09:58] VITALS: BP 128/75; PULSE 57; RESP 18; TEMP 36.6; O2SAT 100
[2023-11-16] MEDS: LACTATED RINGERS 1,000 ML 150 ML IV CONT (10:17)
--- NOTE | 2023-11-16 11:28 | P.PNAN_ITS ---
Anes - Initial Pre Proc Eval Procedure: Operation Date: 11/16/23 11:00 Proposed Procedures p Colonoscopy - Dennis Sweeney MD Date/Time: 11/16/23 11:28 Surgeon: Dennis Sweeney MD Pre Op Diagnosis: Hemorrhoids Patient Data Age: 63 Gender: M Height: 1.75 m Weight: 76 kg Last Vital Signs Temp 97.8 F 11/16/23 09:58 Pulse 57 L 11/16/23 09:58 Resp 18 11/16/23 09:58 BP 128/75 11/16/23 09:58 Pulse Ox 100 11/16/23 09:58 O2 Del Method Room Air 11/16/23 09:58 Allergies Allergy/AdvReac Type Severity Reaction Status Date / Time No Known Allergies Allergy Verified 11/16/23 09:56 Home Medications Medication Instructions Recorded Confirmed Type cholecalciferol (vitamin D3) 125 mcg PO DAILY 08/03/23 11/04/23 History docusate sodium [Stool Softener] 100 mg PO DAILY PRN Constipation 08/03/23 11/04/23 History ferrous sulfate [Iron (ferrous 65 mg PO WEEKLY 08/03/23 11/04/23 History sulfate)] folic acid 800 tablet PO DAILY 08/03/23 11/04/23 History multivitamin 1 tablet PO DAILY 08/03/23 11/04/23 History potassium chloride 99 mg PO WEEKLY 08/03/23 11/04/23 History tamsulosin 0.4 mg capsule (Flomax) 0.4 mg PO DAILY 11/04/23 11/04/23 History Patient hx anesthesia problems: none Family hx anesthesia problems: none Results Review: All pre-operative results and documents have been reviewed as part of the pre- operative evaluation. [facility] Surgical History Surgical History (Updated 08/03/23 @ 12:52 by Rosibel Woodward CMA) History of hip replacement bilateral- Family History Family History (Updated 08/03/23 @ 12:52 by Rosibel Woodward CMA) Unknown Heart disease Social History Social History (Updated 08/03/23 @ 12:53 by Rosibel Woodward CMA) Social History: caffeine use Smoking status: Never smoker Alcohol intake: former Drinks per week: 16 Alcohol use details: quit 5 months ago Substance use: never Substance use type: does not use Do You Feel Safe in your Home?: Yes Lack of Transportation: No Lack of Food: Never True Current Housing: I Have Housing Concerned About Future Housing: No Difficulty Paying Gas/Electric Bills: No Difficulty Paying for Meds: No Currently Unemployed: No Education: High School Diploma/GED Difficulty w/ Childcare or Family Care: No Living arrangements: with family Occupation/Education: retired Gender identity (if verbalized by the patient): Male Spiritual care concerns: No Anes - Eval Final PreProcedure Day of Procedure 11/16/23 11:28 Patient weight: normal Heart: regular rate and rhythm Lungs: clear to auscultation Airway: Mallampati scale class II Neurological: alert and oriented Last oral intake: >/= 8 hours ASA classification: II Emergent: no Anesthetic plan: proceed Anesthesia type and monitoring: general GIVS and standard monitoring Results Review: All pre-operative results and documents have been reviewed as part of the pre- operative evaluation. Informed Consent: The patient's anesthetic plan and its attendant risks and benefits were discussed with the patient/family/POA. Questions were solicited and answers provided to the satisfaction of the pa
--- NOTE | 2023-11-16 12:09 | PM.HPGS ---
History of Present Illness History of Present Illness Consent: Risks, benefits, and alternatives have been discussed and questions answered. Patient agrees to proceed with procedure. Chief complaint: Hemorrhoids Narrative: Dalton Pinto Jr. is a 63 year old male with colon polyp 5 years ago Review of Systems Review of Systems: All systems reviewed & are unremarkable except as noted in HPI and below PMFSH Past Medical History Medical History (Updated 11/16/23 @ 12:09 by Dennis Sweeney MD) Colon polyp Surgical History Surgical History (Updated 08/03/23 @ 12:52 by Rosibel Woodward CMA) History of hip replacement bilateral- Family History Family History (Updated 08/03/23 @ 12:52 by Rosibel Woodward CMA) Unknown Heart disease Social History Social History (Updated 08/03/23 @ 12:53 by Rosibel Woodward CMA) Social History: caffeine use Smoking status: Never smoker Alcohol intake: former Drinks per week: 16 Alcohol use details: quit 5 months ago Substance use: never Substance use type: does not use Do You Feel Safe in your Home?: Yes Lack of Transportation: No Lack of Food: Never True Current Housing: I Have Housing Concerned About Future Housing: No Difficulty Paying Gas/Electric Bills: No Difficulty Paying for Meds: No Currently Unemployed: No Education: High School Diploma/GED Difficulty w/ Childcare or Family Care: No Living arrangements: with family Occupation/Education: retired Gender identity (if verbalized by the patient): Male Spiritual care concerns: No Meds Home Medications and Allergies Home Medications Medication Instructions Recorded Confirmed Type cholecalciferol (vitamin D3) 125 mcg PO DAILY 08/03/23 11/04/23 History docusate sodium [Stool Softener] 100 mg PO DAILY PRN Constipation 08/03/23 11/04/23 History ferrous sulfate [Iron (ferrous 65 mg PO WEEKLY 08/03/23 11/04/23 History sulfate)] folic acid 800 tablet PO DAILY 08/03/23 11/04/23 History multivitamin 1 tablet PO DAILY 08/03/23 11/04/23 History potassium chloride 99 mg PO WEEKLY 08/03/23 11/04/23 History tamsulosin 0.4 mg capsule (Flomax) 0.4 mg PO DAILY 11/04/23 11/04/23 History Allergies Allergy/AdvReac Type Severity Reaction Status Date / Time No Known Allergies Allergy Verified 11/16/23 09:56 Vital Signs Vital Signs - 24 hr 11/16/23 09:58 Temperature 97.8 F Pulse Rate 57 L Respiratory Rate 18 Blood Pressure 128/75 Pulse Oximetry 100 Oxygen Delivery Room Air Exam Const: General: comfortable and no acute distress HENMT: Face/Nose/Sinus: Normal nares present Eyes: General: appearance normal, both eyes and all related structures Neck: Neck: no JVD Resp: Auscultation: clear to auscultation bilaterally Cardio: Rate: regular rate Rhythm: regular rhythm GI: Inspection: non-distended GI Palp: Yes Soft to palpation Skin: General skin exam: normal color Neuro: General: gait normal Speech: normal speech Extrem: General: normal to inspection Psych: Mental Status: mental status grossly normal Assessment and Plan Assessment and plan (1) Colon polyp: Code(s): K63.5 - Polyp of colon Status: Acute Assessment and Plan: colonoscopy
[2023-11-16 12:27] VITALS: BP 74/33; PULSE 69; RESP 20; O2SAT 99
[2023-11-16 12:37] VITALS: BP 72/47; PULSE 82; RESP 20; O2SAT 98
[2023-11-16 12:47] VITALS: BP 122/85; PULSE 89; RESP 24; O2SAT 100
== END 2023-11-16 12:54 | disposition home or self-care (01) ==
PROVIDERS: PCP Internal Medicine; Visit Provider Internal Medicine Gastroenterology
PROC: 0DJD8ZZ Inspection of Lower Intestinal Tract, Via Natural or Artificial Opening Endoscopic (ICD-10-PCS; CPT 45378; principal; 2023-11-16 11:00)
DX: K64.8 Other hemorrhoids (principal); K63.5 Polyp of colon; Z98.890 Other specified postprocedural states; Z82.49 Family history of ischemic heart disease and other diseases of the circulatory system
CPT/HCPCS: 45380; 88305; J1596; J2371; J2704; J7120

== ENCOUNTER 2024-08-02 10:37 | Outpatient (CLI) | payer BC, SELFPAY ==
--- NOTE | ~2024-08-02 | XR_ITS ---
[id number] 08/02/2024 11:10 Indication: Cervicalgia Procedure: 3 view cervical spine Comparison: No prior studies for comparison. Findings: Vertebral body heights are maintained. Normal cervical lordosis. No prevertebral soft tissu e swelling. Lung apices are normal. Mild multilevel uncinate and facet hypertrophy. Odontoid process is normal. No acute fracture or traumatic malalignment. There is atherosclerosis of the aorta. Impression: 1: Mild cervical spondylosis. Reviewed, dictated and finalized at location A. Impression: 1: Mild cervical spondylosis.
--- OUTSIDE RECORDS SUMMARY | 2024-08-02 11:28 | XMS_ITS | CONTINUITY OF CARE DOCUMENT ---
Author Name ryan davis Address Unknown Organization [facility] Address [address] [place] [address] Phone [phone] Care Team Providers Care Production Control Coordinating Clerk Name Role Phone Agusto JUARES, Marleny Unavailable DAMON JUARES, KEYSHA Unavailable Laura JUARES, Johnny Mitchell Unavailable INSURANCE PROVIDERS Payer name Policy type / Coverage type [place] red democrat ID [facility] [employer] insurance company [id number]
== END 2024-08-02 10:38 | disposition home or self-care (01) ==
PROVIDERS: PCP Internal Medicine; Visit Provider Internal Medicine
DX: M47.812 Spondylosis without myelopathy or radiculopathy, cervical region (principal)
CPT/HCPCS: 72040

== ENCOUNTER 2024-09-07 13:02 | Outpatient (CLI) | payer BC, SELFPAY ==
--- NOTE | ~2024-09-07 | CT_ITS ---
CLINICAL INDICATION: Abdominal pain COMPARISON: None TECHNIQUE: Multiple contiguous axial images of the abdomen and pelvis were performed following the ad ministration of with 100 mL Omnipaque-350 intravenous contrast The dose-length product (DLP) was 461.27 mGy-cm. Automated exposure control and iterative reconstruction technique were employed. FINDINGS/OBSERVATIONS: Visualized lower thorax: The bilateral lung bases are clear. The heart is of normal size, without pericardial effusion. Large hiatal hernia is identified. Liver: The liver demonstrates homogeneous enhancement and is not enlarged. Gallbladder and biliary system: The gallbladder is only minimally distended, and otherwise unremarkable. Pancreas: The pancreas enhances homogeneously without significant ductal dilatation. Spleen: The spleen enhances homogeneously and is not enlarged. Kidneys: The bilateral kidneys enhance symmetrically without hydronephrosis or renal calculi. Adrenal glands: Unremarkable. Gastrointestinal tract: Colonic diverticulosis without surrounding inflammatory change. Fecal stasis within the colon. Appendix: The air-filled appendix is of normal caliber (axial series, images 89 through 112) Vasculature: Densely calcified atherosclerotic disease. Lymph nodes: No pathologically enlarged or morphologically suspicious lymph nodes within the retroperitoneum or at the root of the mesentery. Pelvic structures: The bladder is decompressed, and otherwise unremarkable. Poor visibility of the remainder of the pelvis is secondary to streak metallic artifact from the amarilis ent's bilateral hip prostheses Body wall and musculoskeletal: Small, complex fat-containing umbilical hernia. Hyper attenuating focus within the infraumbilical position, likely mesh from prior lower abdominal wa ll repair. Age-appropriate degenerative disease within the lumbosacral spine. There are bridging endplate osteophytes at multiple levels in the lumbosacral spine, consistent with diffuse idiopathic skeletal hyperostosis (DISH). IMPRESSION: Large hiatal hernia. Complex umbilical hernia. No additional findings within the abdomen or pelvis to account for patient's abdominal pain Reviewed, dictated and finalized at location A. IMPRESSION: Large hiatal hernia. Complex umbilical hernia. No additional findings within the abdomen or pelvis to account for patient's ab dominal pain
--- OUTSIDE RECORDS SUMMARY | 2024-09-07 13:05 | XMS_ITS | Data Portability ---
Author Organization [facility], Main Office Address [address] [place] [address] Assessment No assessment recorded. Plan of Treatment Reminders Order Date Submit Date Provider Last Modified By Organization Details Last Modified Time Details Appointments Any 15 2024 08:30A M Johnny Sanchez MD Not available Not available Not available Lab urinalysi s complete, reflex culture 2024 025 [email or web address] [facility] (Lab), [address] [place], [address], 08/01/2024 09:24:26 CMP, serum or plasma 2024 025 [facility] (Lab), [address] [place], [address], 07/26/2024 19:10:57 CBC w/ auto diff 2024 025 [facility] (Lab), [address] [place], [address], 07/26/2024 19:05:10 PSA, serum or plasma 2023 024 [email or web address] [facility] (Lab), [address] [place], [address], 10/04/2023 08:13:12 lipid panel, serum 2023 024 [facility] (Lab), [address] [place], [address], 09/28/2023 20:32:51 CMP, serum or plasma 2023 024 [facility] (Lab), [address] [place], [address], 09/28/2023 20:32:46 Referral urologist referral 2023 024 [email or web address] Tab Golden MD, [address], [place], [address], 08/18/2023 08:28:14 Procedures colonosco py screening (PROC) 2023 024 [email or web address] Thaddeus Hackett MD, [address] [facility], [place], [address], 10/04/2023 08:13:23 Surgeries None recorded. Imaging CT, abdomen + pelvis, w/wo contrast 2024 025 [email or web address] [facility] ([facility]), [address] [place], [address], 08/30/2024 16:59:47 CT, abdomen + pelvis, w/wo contrast - Please call patient to schedule. 2024 025 [facility], [address], [place], [address], 08/28/2024 13:07:55 XR, cervical spine, 2 or 3 view 2024 025 [facility], [address], [place], [address], 08/21/2024 18:18:20 Medication Orders meloxicam 7.5 mg tablet 2024 025 [facility] [id number] In [facility], [address] [place], [address], 08/23/2024 12:35:40 Patient TargetsNo targets recorded. Patient InstructionsNo instructions recorded. Reason for Referral Urologist Referral for Urina ry incontinence Referring Physician: Johnny Sanchez, Internal Medicine, Encounter Date: 07/21/2023 Results Created Date Observation Date Name Description Value Unit Range Abnormal Flag Note LastModifiedBy Organization Detail LastModifiedTime 06/24/19 24 06/24/2023 CBC W/O DIFFE RENTI AL white blood cells 6.2 x10'3 /uL 4.2-10 .8 Not Available [facility] (Lab) [address] [place], [address], 06/24/2023 19:27:24 06/24/19 24 06/24/2023 CBC W/O DIFFE RENTI AL red blood cells 3.15 x10'6 /uL 4.10-5 .80 low Not Available [facility] (Lab) [address] [place], [address], 06/24/2023 19:27:24 06/24/19 24 06/24/2023 CBC W/O DIFFE RENTI AL hemoglobin 11.9 g/dL 13.2-1 7.0 low Not Available [facility] (Lab) [address] [place], [address], 06/24/2023 19:27:24 06/24/19 24 06/24/2023 CBC W/O DIFFE RENTI AL hematocrit 36.6 % 39.3-5 0.0 low Not Available [facility] (Lab) [address] [place], [address], 06/24/2023 19:27:24 06/24/19 24 06/24/2023 CBC W/O DIFFE RENTI AL mean red cell volume 116.2 fL 80.0-9 7.0 high Not Available [facility] (Lab) [address] [place], [address], 06/24/2023 19:27:24 06/24/19 24 06/24/2023 CBC W/O DIFFE RENTI AL mean red cell hemoglobin 37.8 pg 27.0-3 3.0 high Not Available [facility] (Lab) [address] [place], [address], 06/24/2023 19:27:24 06/24/19 24 06/24/2023 CBC W/O DIFFE RENTI AL mean RBC HGB concentratio n 32.5 g/dL 31.0-3 6.0 Not Available [facility] (Lab) [address] [facility] [place], [address], 06/24/2023 19:27:24 06/24/19 24 06/24/2023 CBC W/O DIFFE RENTI AL red cell distribution width 11.8 % 11.8-1 5.5 Not Available [facility] (Lab) [address] [place], [address], 06/24/2023 19:27:24 06/24/19 24 06/24/2023 CBC W/O DIFFE RENTI AL platelets 348 x10'3 /uL 150-40 0 Not Available [facility] (Lab) [address] [place], [address], 06/24/2023 19:27:24 06/24/19 24 06/24/2023 CBC W/O DIFFE RENTI AL mean platelet volume 10.8 fL 9.0-12 .4 Not Available [facility] (Lab) [address] [place], [address], 06/24/2023 19:27:24 06/24/19 24 06/24/2023 RETIC ULOCY TE COUNT reticulocyte count 4.1 % 0.5-1. 5 high Not Available [facility] (Lab) [address] [place], [address], 06/24/2023 19:27:34 06/24/19 24 06/24/2023 RETIC ULOCY TE COUNT reticulocyte s, absolute 0.1282 x10'6 /uL REFER ENCE RANGE HAS NOT BEEN ESTAB LISHE D FOR RETIC ULOCY TE ABSOL ATMAUTLUAK NUMBE R. Not Available [facility] (Lab) [address] [place], [address], 06/24/2023 19:27:34 06/24/19 24 06/24/2023 IRON/ TIBC PANEL total iron binding capacity 266 mcg/d L 265-47 5 Not Available [facility] (Lab) [address] [place], [address], 06/24/2023 20:11:54 06/24/19 24 06/24/2023 IRON/ TIBC PANEL % transferrin saturation 18 % 20-55 low Not Available [facility] (Lab) [address] [place], [address], 06/24/2023 20:11:54 06/24/19 24 06/24/2023 IRON/ TIBC PANEL unsaturated iron bind capacity 219 mcg/d L 126-38 2 Not Available [facility] (Lab) [address] [place], [address], 06/24/2023 20:11:54 06/24/19 24 06/24/2023 IRON/ TIBC PANEL iron 47 mcg/d L 42-175 Not Available [facility] (Lab) [address] [place], [address], 06/24/2023 20:11:54 06/24/19 24 06/24/2023 COMPR EHENS MIKE METAB OLIC PANEL sodium 137 mmol/ L 137-14 5 Not Available [facility] (Lab) [address] [place], [address], 06/24/2023 20:06:05 06/24/19 24 06/24/2023 COMPR EHENS MIKE METAB OLIC PANEL potassium 4.1 mmol/ L 3.5-5. 1 Not Available [facility] (Lab) [address] [place], [address], 06/24/2023 20:06:05 06/24/19 24 06/24/2023 COMPR EHENS MIKE METAB OLIC PANEL chloride 105 mmol/ L 98-107 Not Available [facility] (Lab) [address] [place], [address], 06/24/2023 20:06:05 06/24/19 24 06/24/2023 COMPR EHENS MIKE METAB OLIC PANEL carbon dioxide 25 mmol/ L 22-30 Not Available [facility] (Lab) [address] [place], [address], 06/24/2023 20:06:05 06/24/19 24 06/24/2023 COMPR EHENS MIKE METAB OLIC PANEL anion gap 11.1 mmol/ L 14-22 low Not Available [facility] (Lab) [address] [place], [address], 06/24/2023 20:06:05 06/24/19 24 06/24/2023 COMPR EHENS MIKE METAB OLIC PANEL glucose 106 mg/dL 70-99 high Not Available [facility] (Lab) [address] [place], [address], 06/24/2023 20:06:05 06/24/19 24 06/24/2023 COMPR EHENS MIKE METAB OLIC PANEL BUN 8 mg/dL 8-19 Not Available [facility] (Lab) [address] [place], [address], 06/24/2023 20:06:05 06/24/19 24 06/24/2023 COMPR EHENS MIKE METAB OLIC PANEL creatinine 0.56 mg/dL 0.66-1 .25 low Not Available [facility] (Lab) [address] [place], [address], 06/24/2023 20:06:05 06/24/19 24 06/24/2023 COMPR EHENS MIKE METAB OLIC PANEL GFR >60 Refer ence Range : [place] GFR Healt hy Adult : >60 mL/mi n/1.7 3 m2 Chron ic Kidne y Disea se: 15-60 mL/mi n/1.7 3 m2 Kidne y Failu re: <15/m L/min /1.73 m2 www.n iddk. nih.g ov The MDRD study equat ion has not been valid ated in child jenifer <18 years of age; pregn ant women ; the elder ly >85 years of age; or in some racia l or ethni c subgr oups, such as Hispa nics. Outsi de the valid ated zoila eters , estim ated GFR is less accur ate, requi ring clini micha judgm ent on a case- by-ca se basis . Clini micha inter preta tion for other races and ages must be made by the clini seth. The MDRD study equat ion has not been valid ated for the evalu ation of serum creat inine relat ed to nutri ronald l statu s or medic ation usage . For perso ns <18 years of age, a pedia tric GFR calcu lator is avail able on the [facility] websi te: https ://manolo w.james iraheta.o rg/pr ofess ional s/kdo qi/gf r_cal culat or Not Available [facility] (Lab) [address] [place], [address], 06/24/2023 20:06:05 06/24/19 24 06/24/2023 COMPR EHENS MIKE METAB OLIC PANEL alkaline phosphatase 101 U/L 38-126 Not Available [facility] (Lab) [address] [place], [address], 06/24/2023 20:06:05 06/24/19 24 06/24/2023 COMPR EHENS MIKE METAB OLIC PANEL alanine aminotransfe rase 22 U/L 0-50 Not Available [facility] (Lab) [address] [place], [address], 06/24/2023 20:06:05 06/24/19 24 06/24/2023 COMPR EHENS MIKE METAB OLIC PANEL aspartate aminotransfe rase 48 U/L 15-46 high Not Available [facility] (Lab) [address] [facility] [place], [address], 06/24/2023 20:06:05 06/24/19 24 06/24/2023 COMPR EHENS MIKE METAB OLIC PANEL bilirubin, total 1.10 mg/dL 0.20-1 .30 Not Available [facility] (Lab) [address] [place], [address], 06/24/2023 20:06:05 06/24/19 24 06/24/2023 COMPR EHENS MIKE METAB OLIC PANEL calcium 9.6 mg/dL 8.4-10 .2 Not Available [facility] (Lab) [address] [place], [address], 06/24/2023 20:06:05 06/24/19 24 06/24/2023 COMPR EHENS MIKE METAB OLIC PANEL total protein 6.4 g/dL 6.3-8. 2 Not Available [facility] (Lab) [address] [place], [address], 06/24/2023 20:06:05 06/24/19 24 06/24/2023 COMPR EHENS MIKE METAB OLIC PANEL albumin 3.7 g/dL 3.4-5. 0 Not Available [facility] (Lab) [address] [place], [address], 06/24/2023 20:06:05 06/24/19 24 06/24/2023 COMPR EHENS MIKE METAB OLIC PANEL globulin 2.7 g/dL 2.6-4. 2 Not Available [facility] (Lab) [address] [place], [address], 06/24/2023 20:06:05 06/24/19 24 06/24/2023 COMPR EHENS MIKE METAB OLIC PANEL A/G ratio 1.4 ratio 1.0-2. 0 Not Available [facility] (Lab) [address] [place], [address], 06/24/2023 20:06:05 06/24/19 24 06/24/2023 NATALI TIN ferritin 259 NG/mL 17.9-4 64 Not Available [facility] (Lab) [address] [place], [address], 06/24/2023 20:49:33 06/24/19 24 06/24/2023 VITAM IN B12 (CARLOS ELVIE ) vb12 823 pg/mL 239-93 1 Not Available [facility] (Lab) [address] [place], [address], 06/24/2023 21:21:09 06/24/19 24 06/24/2023 FOLAT E, SERUM /PLAS MA folate 9.31 NG/mL 2.76-2 0.0 Not Available [facility] (Lab) [address] [place], [address], 06/24/2023 21:21:14 09/20/19 24 09/20/2023 CBC/C OMPLE TE BLD COUNT W/DIF F white blood cells 5.5 x10'3 /uL 4.2-10 .8 Not Available [facility] (Lab) [address] [place], [address], 09/20/2023 19:29:43 09/20/19 24 09/20/2023 CBC/C OMPLE TE BLD COUNT W/DIF F red blood cells 3.99 x10'6 /uL 4.10-5 .80 low Not Available [facility] (Lab) [address] [place], [address], 09/20/2023 19:29:43 09/20/19 24 09/20/2023 CBC/C OMPLE TE BLD COUNT W/DIF F hemoglobin 13.4 g/dL 13.2-1 7.0 Not Available [facility] (Lab) [address] [facility] [place], [address], 09/20/2023 19:29:43 09/20/19 24 09/20/2023 CBC/C OMPLE TE BLD COUNT W/DIF F hematocrit 40.7 % 39.3-5 0.0 Not Available [facility] (Lab) [address] [place], [address], 09/20/2023 19:29:43 09/20/19 24 09/20/2023 CBC/C OMPLE TE BLD COUNT W/DIF F mean red cell volume 102.0 fL 80.0-9 7.0 high Not Available [facility] (Lab) [address] [place], [address], 09/20/2023 19:29:43 09/20/19 24 09/20/2023 CBC/C OMPLE TE BLD COUNT W/DIF F mean red cell hemoglobin 33.6 pg 27.0-3 3.0 high Not Available [facility] (Lab) [address] [place], [address], 09/20/2023 19:29:43 09/20/19 24 09/20/2023 CBC/C OMPLE TE BLD COUNT W/DIF F mean RBC HGB concentratio n 32.9 g/dL 31.0-3 6.0 Not Available [facility] (Lab) [address] [place], [address], 09/20/2023 19:29:43 09/20/19 24 09/20/2023 CBC/C OMPLE TE BLD COUNT W/DIF F red cell distribution width 13.2 % 11.8-1 5.5 Not Available [facility] (Lab) [address] [place], [address], 09/20/2023 19:29:43 09/20/19 24 09/20/2023 CBC/C OMPLE TE BLD COUNT W/DIF F platelets 202 x10'3 /uL 150-40 0 Not Available [facility] (Lab) [address] [place], [address], 09/20/2023 19:29:43 09/20/19 24 09/20/2023 CBC/C OMPLE TE BLD COUNT W/DIF F mean platelet volume 11.8 fL 9.0-12 .4 Not Available [facility] (Lab) [address] [place], [address], 09/20/2023 19:29:43 09/20/19 24 09/20/2023 CBC/C OMPLE TE BLD COUNT W/DIF F neutrophils 30.1 % 39.0-7 2.0 low Not Available [facility] (Lab) [address] [place], [address], 09/20/2023 19:29:43 09/20/19 24 09/20/2023 CBC/C OMPLE TE BLD COUNT W/DIF F lymphocytes 56.0 % 16.0-4 7.0 high Not Available [facility] (Lab) [address] [place], [address], 09/20/2023 19:29:43 09/20/19 24 09/20/2023 CBC/C OMPLE TE BLD COUNT W/DIF F monocytes 10.1 % 5.0-12 .0 Not Available [facility] (Lab) [address] [place], [address], 09/20/2023 19:29:43 09/20/19 24 09/20/2023 CBC/C OMPLE TE BLD COUNT W/DIF F eosinophils 3.1 % 1.0-7. 0 Not Available [facility] (Lab) [address] [place], [address], 09/20/2023 19:29:43 09/20/19 24 09/20/2023 CBC/C OMPLE TE BLD COUNT W/DIF F basophils 0.5 % 0.0-2. 0 Not Available [facility] (Lab) [address] [place], [address], 09/20/2023 19:29:43 09/20/19 24 09/20/2023 CBC/C OMPLE TE BLD COUNT W/DIF F immature granulocytes 0.2 % 0.00-0 .50 Not Available [facility] (Lab) [address] [place], [address], 09/20/2023 19:29:43 09/20/19 24 09/20/2023 CBC/C OMPLE TE BLD COUNT W/DIF F neutrophils, absolute count 1.67 x10'3 /uL 1.5-8. 0 Not Available [facility] (Lab) [address] [place], [address], 09/20/2023 19:29:43 09/20/19 24 09/20/2023 CBC/C OMPLE TE BLD COUNT W/DIF F lymphocytes, absolute count 3.10 x10'3 /uL 1.07-3 .43 Not Available [facility] (Lab) [address] [place], [address], 09/20/2023 19:29:43 09/20/19 24 09/20/2023 CBC/C OMPLE TE BLD COUNT W/DIF F monocytes, absolute count 0.56 x10'3 /uL 0.29-0 .99 Not Available [facility] (Lab) [address] [place], [address], 09/20/2023 19:29:43 09/20/19 24 09/20/2023 CBC/C OMPLE TE BLD COUNT W/DIF F eosinophils, absolute count 0.17 x10'3 /uL 0.02-0 .53 Not Available [facility] (Lab) [address] [place], [address], 09/20/2023 19:29:43 09/20/19 24 09/20/2023 CBC/C OMPLE TE BLD COUNT W/DIF F basophils, absolute count 0.03 x10'3 /uL 0.01-0 .08 Not Available [facility] (Lab) [address] [place], [address], 09/20/2023 19:29:43 09/20/19 24 09/20/2023 CBC/C OMPLE TE BLD COUNT W/DIF F immature granulocytes ,absolute 0.01 x10'3 /uL 0.00-0 .05 Not Available [facility] (Lab) [address] [place], [address], 09/20/2023 19:29:43 09/20/19 24 09/20/2023 CBC/C OMPLE TE BLD COUNT W/DIF F nucleated red blood cells 0.0 % -0 Not Available [facility] (Lab) [address] [place], [address], 09/20/2023 19:29:43 09/20/19 24 09/20/2023 CBC/C OMPLE TE BLD COUNT W/DIF F NRBC# 0.00 x10'3 /uL Not Available [facility] (Lab) [address] [place], [address], 09/20/2023 19:29:43 09/28/19 24 09/28/2023 COMPR EHENS MIKE METAB OLIC PANEL sodium 136 mmol/ L 137-14 5 low Not Available [facility] (Lab) [address] [place], [address], 09/28/2023 20:32:46 09/28/19 24 09/28/2023 COMPR EHENS MIKE METAB OLIC PANEL potassium 4.4 mmol/ L 3.5-5. 1 Not Available [facility] (Lab) [address] [place], [address], 09/28/2023 20:32:46 09/28/19 24 09/28/2023 COMPR EHENS MIKE METAB OLIC PANEL chloride 105 mmol/ L 98-107 Not Available [facility] (Lab) [address] [place], [address], 09/28/2023 20:32:46 09/28/19 24 09/28/2023 COMPR EHENS MIKE METAB OLIC PANEL carbon dioxide 24 mmol/ L 22-30 Not Available [facility] (Lab) [address] [place], [address], 09/28/2023 20:32:46 09/28/19 24 09/28/2023 COMPR EHENS MIKE METAB OLIC PANEL anion gap 11.4 mmol/ L 14-22 low Not Available [facility] (Lab) [address] [place], [address], 09/28/2023 20:32:46 09/28/19 24 09/28/2023 COMPR EHENS MIKE METAB OLIC PANEL glucose 94 mg/dL 70-99 Not Available [facility] (Lab) [address] [place], [address], 09/28/2023 20:32:46 09/28/19 24 09/28/2023 COMPR EHENS MIKE METAB OLIC PANEL BUN 12 mg/dL 8-19 Not Available [facility] (Lab) [address] [place], [address], 09/28/2023 20:32:46 09/28/19 24 09/28/2023 COMPR EHENS MIKE METAB OLIC PANEL creatinine 0.72 mg/dL 0.66-1 .25 Not Available [facility] (Lab) [address] [place], [address], 09/28/2023 20:32:46 09/28/19 24 09/28/2023 COMPR EHENS MIKE METAB OLIC PANEL GFR >60 Refer ence Range : [place] GFR Healt hy Adult : >60 mL/mi n/1.7 3 m2 Chron ic Kidne y Disea se: 15-60 mL/mi n/1.7 3 m2 Kidne y Failu re: <15/m L/min /1.73 m2 www.n iddk. nih.g ov The MDRD study equat ion has not been valid ated in child jenifer <18 years of age; pregn ant women ; the elder ly >85 years of age; or in some racia l or ethni c subgr oups, such as Hispa nics. Outsi de the valid ated zoila eters , estim ated GFR is less accur ate, requi ring clini micha judgm ent on a case- by-ca se basis . Clini micha inter preta tion for other races and ages must be made by the clini seth. The MDRD study equat ion has not been valid ated for the evalu ation of serum creat inine relat ed to nutri ronald l statu s or medic ation usage . For perso ns <18 years of age, a pedia tric GFR calcu lator is avail able on the [facility] websi te: https ://manolo w.kid esequiel.o rg/pr ofess ional s/kdo qi/gf r_cal culat or Not Available [facility] (Lab) [address] [place], [address], 09/28/2023 20:32:46 09/28/19 24 09/28/2023 COMPR EHENS MIKE METAB OLIC PANEL alkaline phosphatase 71 U/L 38-126 Not Available [facility] (Lab) [address] [place], [address], 09/28/2023 20:32:46 09/28/19 24 09/28/2023 COMPR EHENS MIKE METAB OLIC PANEL alanine aminotransfe rase 12 U/L 0-50 Not Available [facility] (Lab) [address] [place], [address], 09/28/2023 20:32:46 09/28/19 24 09/28/2023 COMPR EHENS MIKE METAB OLIC PANEL aspartate aminotransfe rase 25 U/L 15-46 Not Available [facility] (Lab) [address] [place], [address], 09/28/2023 20:32:46 09/28/19 24 09/28/2023 COMPR EHENS MIKE METAB OLIC PANEL bilirubin, total 0.40 mg/dL 0.20-1 .30 Not Available [facility] (Lab) [address] [place], [address], 09/28/2023 20:32:46 09/28/19 24 09/28/2023 COMPR EHENS MIKE METAB OLIC PANEL calcium 9.5 mg/dL 8.4-10 .2 Not Available [facility] (Lab) [address] [place], [address], 09/28/2023 20:32:46 09/28/19 24 09/28/2023 COMPR EHENS MIKE METAB OLIC PANEL total protein 6.3 g/dL 6.3-8. 2 Not Available [facility] (Lab) [address] [place], [address], 09/28/2023 20:32:46 09/28/19 24 09/28/2023 COMPR EHENS MIKE METAB OLIC PANEL albumin 3.9 g/dL 3.4-5. 0 Not Available [facility] (Lab) [address] [place], [address], 09/28/2023 20:32:46 09/28/19 24 09/28/2023 COMPR EHENS MIKE METAB OLIC PANEL globulin 2.4 g/dL 2.6-4. 2 low Not Available [facility] (Lab) [address] [place], [address], 09/28/2023 20:32:46 09/28/19 24 09/28/2023 COMPR EHENS MIKE METAB OLIC PANEL A/G ratio 1.6 ratio 1.0-2. 0 Not Available [facility] (Lab) [address] [place], [address], 09/28/2023 20:32:46 09/28/1909/28/2023 LIPID PANEL cholesterol 190 mg/dL 140-19 9 NIH GAIL NSUS RECOM MENDA TION FOR GUALBERTO STERO L: ADULT CHILD LOW RISK: <200 <170 BORDE RLINE : <200- 239 ----- HIGH RISK: >240 >200 Not Available [facility] (Lab) [address] [place], [address], 09/28/2023 20:32:51 09/28/19 24 09/28/2023 LIPID PANEL triglyceride s 116 mg/dL 0-150 NIH GAIL NSUS REPOR T RECOM MENDA TION FOR TRIGL YCERI SUPRIYA: ADULT CHILD LOW RISK: <150 ----- BODER LINE: 150-1 99 ----- HIGH RISK: >200 ----- Not Available [facility] (Lab) [address] [place], [address], 09/28/2023 20:32:51 09/28/19 24 09/28/2023 LIPID PANEL HDL cholesterol 37 mg/dL 40- low Not Available [facility] (Lab) [address] [place], [address], 09/28/2023 20:32:51 09/28/19 24 09/28/2023 LIPID PANEL LDL cholesterol, calculated 130 mg/dL 0-130 NIH GAIL NSUS REPOR T RECOM MENDA TIONS FOR LDL: ADULT CHILD LOW RISK <130 <110 (OPTI MAL LDL) <100 ----- BORDE RLINE : 130-1 59 ----- HIGH RISK: >160 >130 A TRIGL YCERI DE RESUL T >400 INVAL IDATE S THE CALCU LATIO N FOR LDL FRACT IONAT ION - THE LDL RESUL T WILL NOT BE REPOR BREN. Not Available [facility] (Lab) [address] [place], [address], 09/28/2023 20:32:51 09/28/19 24 09/28/2023 PSA SCREE N PSA medicare screen 0.29 NG/mL 0.00-4 .00 Not Available [facility] (Lab) [address] [place], [address], 09/28/2023 21:24:48 07/27/19 25 07/26/2024 CBC/C OMPLE TE BLD COUNT W/DIF F white blood cells 5.3 x10'3 /uL 4.2-10 .8 Not Available [facility] (Lab) [address] [place], [address], 07/26/2024 19:05:10 07/27/19 25 07/26/2024 CBC/C OMPLE TE BLD COUNT W/DIF F red blood cells 4.21 x10'6 /uL 4.10-5 .80 Not Available [facility] (Lab) [address] [place], [address], 07/26/2024 19:05:10 07/27/19 25 07/26/2024 CBC/C OMPLE TE BLD COUNT W/DIF F hemoglobin 14.3 g/dL 13.2-1 7.0 Not Available [facility] (Lab) [address] [place], [address], 07/26/2024 19:05:10 07/27/19 25 07/26/2024 CBC/C OMPLE TE BLD COUNT W/DIF F hematocrit 43.6 % 39.3-5 0.0 Not Available [facility] (Lab) [address] [place], [address], 07/26/2024 19:05:10 07/27/19 25 07/26/2024 CBC/C OMPLE TE BLD COUNT W/DIF F mean red cell volume 103.6 fL 80.0-9 7.0 high Not Available [facility] (Lab) [address] [place], [address], 07/26/2024 19:05:10 07/27/19 25 07/26/2024 CBC/C OMPLE TE BLD COUNT W/DIF F mean red cell hemoglobin 34.0 pg 27.0-3 3.0 high Not Available [facility] (Lab) [address] [place], [address], 07/26/2024 19:05:10 07/27/19 25 07/26/2024 CBC/C OMPLE TE BLD COUNT W/DIF F mean RBC HGB concentratio n 32.8 g/dL 31.0-3 6.0 Not Available [facility] (Lab) [address] [place], [address], 07/26/2024 19:05:10 07/27/19 25 07/26/2024 CBC/C OMPLE TE BLD COUNT W/DIF F red cell distribution width 13.0 % 11.8-1 5.5 Not Available [facility] (Lab) [address] [place], [address], 07/26/2024 19:05:10 07/27/19 25 07/26/2024 CBC/C OMPLE TE BLD COUNT W/DIF F platelets 184 x10'3 /uL 150-40 0 Not Available [facility] (Lab) [address] [place], [address], 07/26/2024 19:05:10 07/27/19 25 07/26/2024 CBC/C OMPLE TE BLD COUNT W/DIF F mean platelet volume 11.7 fL 9.0-12 .4 Not Available [facility] (Lab) [address] [place], [address], 07/26/2024 19:05:10 07/27/19 25 07/26/2024 CBC/C OMPLE TE BLD COUNT W/DIF F neutrophils 45.2 % 39.0-7 2.0 Not Available [facility] (Lab) [address] [place], [address], 07/26/2024 19:05:10 07/27/19 25 07/26/2024 CBC/C OMPLE TE BLD COUNT W/DIF F lymphocytes 42.5 % 16.0-4 7.0 Not Available [facility] (Lab) [address] [place], [address], 07/26/2024 19:05:10 07/27/19 25 07/26/2024 CBC/C OMPLE TE BLD COUNT W/DIF F monocytes 8.5 % 5.0-12 .0 Not Available [facility] (Lab) [address] [place], [address], 07/26/2024 19:05:10 07/27/1907/26/2024 CBC/C OMPLE TE BLD COUNT W/DIF F eosinophils 2.8 % 1.0-7. 0 Not Available [facility] (Lab) [address] [place], [address], 07/26/2024 19:05:10 07/27/1907/26/2024 CBC/C OMPLE TE BLD COUNT W/DIF F basophils 0.8 % 0.0-2. 0 Not Available [facility] (Lab) [address] [place], [address], 07/26/2024 19:05:10 07/27/1907/26/2024 CBC/C OMPLE TE BLD COUNT W/DIF F immature granulocytes 0.2 % 0.00-0 .50 Not Available [facility] (Lab) [address] [place], [address], 07/26/2024 19:05:10 07/27/19 25 07/26/2024 CBC/C OMPLE TE BLD COUNT W/DIF F neutrophils, absolute count 2.41 x10'3 /uL 1.5-8. 0 Not Available [facility] (Lab) [address] [place], [address], 07/26/2024 19:05:10 07/27/1907/26/2024 CBC/C OMPLE TE BLD COUNT W/DIF F lymphocytes, absolute count 2.26 x10'3 /uL 1.07-3 .43 Not Available [facility] (Lab) [address] [place], [address], 07/26/2024 19:05:10 07/27/19 25 07/26/2024 CBC/C OMPLE TE BLD COUNT W/DIF F monocytes, absolute count 0.45 x10'3 /uL 0.29-0 .99 Not Available [facility] (Lab) [address] [place], [address], 07/26/2024 19:05:10 07/27/19 25 07/26/2024 CBC/C OMPLE TE BLD COUNT W/DIF F eosinophils, absolute count 0.15 x10'3 /uL 0.02-0 .53 Not Available [facility] (Lab) [address] [place], [address], 07/26/2024 19:05:10 07/27/19 25 07/26/2024 CBC/C OMPLE TE BLD COUNT W/DIF F basophils, absolute count 0.04 x10'3 /uL 0.01-0 .08 Not Available [facility] (Lab) [address] [place], [address], 07/26/2024 19:05:10 07/27/19 25 07/26/2024 CBC/C OMPLE TE BLD COUNT W/DIF F immature granulocytes ,absolute 0.01 x10'3 /uL 0.00-0 .05 Not Available [facility] (Lab) [address] [place], [address], 07/26/2024 19:05:10 07/27/19 25 07/26/2024 CBC/C OMPLE TE BLD COUNT W/DIF F nucleated red blood cells 0.0 % -0 Not Available [facility] (Lab) [address] [place], [address], 07/26/2024 19:05:10 07/27/19 25 07/26/2024 CBC/C OMPLE TE BLD COUNT W/DIF F NRBC# 0.00 x10'3 /uL Not Available [facility] (Lab) [address] [place], [address], 07/26/2024 19:05:10 07/27/19 25 07/26/2024 COMPR EHENS MIKE METAB OLIC PANEL sodium 138 mmol/ L 137-14 5 Not Available [facility] (Lab) [address] [place], [address], 07/26/2024 19:10:57 07/27/19 25 07/26/2024 COMPR EHENS MIKE METAB OLIC PANEL potassium 4.3 mmol/ L 3.5-5. 1 Not Available [facility] (Lab) [address] [place], [address], 07/26/2024 19:10:57 07/27/19 25 07/26/2024 COMPR EHENS MIKE METAB OLIC PANEL chloride 108 mmol/ L 98-107 high Not Available [facility] (Lab) [address] [place], [address], 07/26/2024 19:10:57 07/27/19 25 07/26/2024 COMPR EHENS MIKE METAB OLIC PANEL carbon dioxide 27 mmol/ L 22-30 Not Available [facility] (Lab) [address] [place], [address], 07/26/2024 19:10:57 07/27/19 25 07/26/2024 COMPR EHENS MIKE METAB OLIC PANEL anion gap 7.3 mmol/ L 14-22 low Not Available [facility] (Lab) [address] [place], [address], 07/26/2024 19:10:57 07/27/19 25 07/26/2024 COMPR EHENS MIKE METAB OLIC PANEL glucose 102 mg/dL 70-99 high Not Available [facility] (Lab) [address] [place], [address], 07/26/2024 19:10:57 07/27/19 25 07/26/2024 COMPR EHENS MIKE METAB OLIC PANEL BUN 13 mg/dL 8-19 Not Available [facility] (Lab) [address] [place], [address], 07/26/2024 19:10:57 07/27/19 25 07/26/2024 COMPR EHENS MIKE METAB OLIC PANEL creatinine 0.71 mg/dL 0.66-1 .25 Not Available [facility] (Lab) [address] [place], [address], 07/26/2024 19:10:57 07/27/19 25 07/26/2024 COMPR EHENS MIKE METAB OLIC PANEL GFR >60 Refer ence Range : [place] GFR Healt hy Adult : >60 mL/mi n/1.7 3 m2 Chron ic Kidne y Disea se: 15-60 mL/mi n/1.7 3 m2 Kidne y Failu re: <15/m L/min /1.73 m2 www.n iddk. nih.g ov The MDRD study equat ion has not been valid ated in child jenifer <18 years of age; pregn ant women ; the elder ly >85 years of age; or in some racia l or ethni c subgr oups, such as Hispa nics. Outsi de the valid ated zoila eters , estim ated GFR is less accur ate, requi ring clini micha judgm ent on a case- by-ca se basis . Clini micha inter preta tion for other races and ages must be made by the clini seth. The MDRD study equat ion has not been valid ated for the evalu ation of serum creat inine relat ed to nutri ronald l statu s or medic ation usage . For perso ns <18 years of age, a pedia tric GFR calcu lator is avail able on the [facility] websi te: https :[email or web address] iraheta.o terrence/pr ofess ional s/kdo qi/gf r_cal culat or Not Available [facility] (Lab) [address] [place], [address], 07/26/2024 19:10:57 07/27/19 25 07/26/2024 COMPR EHENS MIKE METAB OLIC PANEL alkaline phosphatase 61 U/L 38-126 Not Available [facility] (Lab) [address] [place], [address], 07/26/2024 19:10:57 07/27/19 25 07/26/2024 COMPR EHENS MIKE METAB OLIC PANEL alanine aminotransfe rase 17 U/L 0-50 Not Available [facility] (Lab) [address] [place], [address], 07/26/2024 19:10:57 07/27/19 25 07/26/2024 COMPR EHENS MIKE METAB OLIC PANEL aspartate aminotransfe rase 30 U/L 15-46 Not Available [facility] (Lab) [address] [place], [address], 07/26/2024 19:10:57 07/27/19 25 07/26/2024 COMPR EHENS MIKE METAB OLIC PANEL bilirubin, total 0.80 mg/dL 0.20-1 .30 Not Available [facility] (Lab) [address] [place], [address], 07/26/2024 19:10:57 07/27/19 25 07/26/2024 COMPR EHENS MIKE METAB OLIC PANEL calcium 9.5 mg/dL 8.4-10 .2 Not Available [facility] (Lab) [address] [place], [address], 07/26/2024 19:10:57 07/27/19 25 07/26/2024 COMPR EHENS MIKE METAB OLIC PANEL total protein 6.6 g/dL 6.3-8. 2 Not Available [facility] (Lab) [address] [place], [address], 07/26/2024 19:10:57 07/27/19 25 07/26/2024 COMPR EHENS MIKE METAB OLIC PANEL albumin 4.4 g/dL 3.0-4. 4 Not Available [facility] (Lab) [address] [place], [address], 07/26/2024 19:10:57 07/27/19 25 07/26/2024 COMPR EHENS MIKE METAB OLIC PANEL globulin 2.2 g/dL 2.6-4. 2 low Not Available [facility] (Lab) [address] [place], [address], 07/26/2024 19:10:57 07/27/19 25 07/26/2024 COMPR EHENS MIKE METAB OLIC PANEL A/G ratio 2.0 ratio 1.0-2. 0 Not Available [facility] (Lab) [address] [place], [address], 07/26/2024 19:10:57 07/27/19 25 07/26/2024 URINA LYSIS COMPL ETE/I RIS W/RFX color LIGHT- YELLOW Not Available [facility] (Lab) [address] [place], [address], 07/26/2024 19:16:16 07/27/19 25 07/26/2024 URINA LYSIS COMPL ETE/I RIS W/RFX appear CLEAR Not Available [facility] (Lab) [address] [place], [address], 07/26/2024 19:16:16 07/27/19 25 07/26/2024 URINA LYSIS COMPL ETE/I RIS W/RFX specific gravity 1.011 1.001- 1.030 Not Available [facility] (Lab) [address] [place], [address], 07/26/2024 19:16:16 07/27/19 25 07/26/2024 URINA LYSIS COMPL ETE/I RIS W/RFX pH 7.0 pH_un its 5.0-9. 0 Not Available [facility] (Lab) [address] [place], [address], 07/26/2024 19:16:16 07/27/19 25 07/26/2024 URINA LYSIS COMPL ETE/I RIS W/RFX leukocytes NEGATI VE kacie/u L negati ve- Not Available [facility] (Lab) [address] [place], [address], 07/26/2024 19:16:16 07/27/19 25 07/26/2024 URINA LYSIS COMPL ETE/I RIS W/RFX nitrite NEGATI VE negati ve- Not Available [facility] (Lab) [address] [place], [address], 07/26/2024 19:16:16 07/27/19 25 07/26/2024 URINA LYSIS COMPL ETE/I RIS W/RFX protein NEGATI VE mg/dL negati ve- Not Available [facility] (Lab) [address] [place], [address], 07/26/2024 19:16:16 07/27/19 25 07/26/2024 URINA LYSIS COMPL ETE/I RIS W/RFX glucose NORMAL mg/dL normal - Not Available [facility] (Lab) [address] [place], [address], 07/26/2024 19:16:16 07/27/19 25 07/26/2024 URINA LYSIS COMPL ETE/I RIS W/RFX ketones NEGATI VE mg/dL negati ve- Not Available [facility] (Lab) [address] [place], [address], 07/26/2024 19:16:16 07/27/19 25 07/26/2024 URINA LYSIS COMPL ETE/I RIS W/RFX urobilinogen NORMAL mg/dL normal - Not Available [facility] (Lab) [address] [place], [address], 07/26/2024 19:16:16 07/27/19 25 07/26/2024 URINA LYSIS COMPL ETE/I RIS W/RFX bilirubin NEGATI VE mg/dL negati ve- Not Available [facility] (Lab) [address] [place], [address], 07/26/2024 19:16:16 07/27/19 25 07/26/2024 URINA LYSIS COMPL ETE/I RIS W/RFX blood NEGATI VE mg/dL negati ve- Not Available [facility] (Lab[facility] [address] [facility] [place], [address], 07/26/2024 19:16:16 07/27/19 25 07/26/2024 URINA LYSIS COMPL ETE/I RIS W/RFX white blood cells 0-8 /i??h pfi?? 0-8 Not Available [facility] (Lab) [address] [place], [address], 07/26/2024 19:16:16 07/27/19 25 07/26/2024 URINA LYSIS COMPL ETE/I RIS W/RFX red blood cells 0-4 /i??h pfi?? 0-4 Not Available [facility] (Lab) [address] [place], [address], 07/26/2024 19:16:16 07/27/19 25 07/26/2024 URINA LYSIS COMPL ETE/I RIS W/RFX bacteria NONE Not Available [facility] (Lab) [address] [place], [address], 07/26/2024 19:16:16 07/27/19 25 07/26/2024 URINA LYSIS COMPL ETE/I RIS W/RFX mucous OCCASI ONAL /i??l pfi?? abnormal Not Available [facility] (Lab) [address] [place], [address], 07/26/2024 19:16:16 07/27/19 25 07/26/2024 URINA LYSIS COMPL ETE/I RIS W/RFX squamous epithelial OCCASI ONAL /i??l pfi?? abnormal Not Available [facility] (Lab) [address] [place], [address], 07/26/2024 19:16:16 08/22/19 25 08/21/2024 XR, cervi micha spine , 2 or 3 view No observ ation record ed. [id number] [facility] [address], [place], [address], 08/22/2024 16:38:28 Result Notes None recorded. 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 4 15:34:01 Essential hypertensi on 63335283 Active Not Available [employer] 3 14:46:51 Hyperglyce miriam 84866500 Active 2016 Sonam gomez, RMA null, [place] [facility] 4 15:34:00 Closed fracture of hip 417640604 Completed 202309/27/2023 Sonam gomez, RMA null, [place] - [facility] 4 14:37:46 Hypokalemi a 66172118 Active 2023 Sonam gomez, RMA null, [place] - [facility] [place] [facility] 4 14:43:47 Alcoholism 7232352 Active 2023 Sonam gomez, RMA null, [place] [facility] 4 14:43:37 Thrombocyt openic disorder 053246817 Active 2023 Sonam gomez, RMA null, [place] [facility] 4 14:37:13 Liver function tests outside reference range 754133554 Active 2023 Johnny Sanchez MD [address] [place] [address], [address] , [place] [facility] 16:08:13 Anemia 004243427 Active 2023 Sonam gomez, RMA null, [place] [facility] 4 14:43:32 Contusion of lower leg 35289499 Completed 202309/27/2023 Sonam gomez, RMA null, [place] [facility] 4 14:37:43 History of alcoholism 637849155 Active 2023 Sonam gomez, RMA null, [place] [facility] 14:37:38 Urinary incontinen ce 657388508 Active 2023 Sonam Clayton gomez, MAYNOR null, [facility] 4 14:45:08 Urinary symptoms 744156316 Active 2024 Johnny Sanchez MD [address], [place], [address] , [facility] 5 14:33:16 Neck pain 90096574 Active 2024 Johnny Sanchez MD [address], [place], [address] , [facility] 5 14:34:11 Abdominal pain 70460648 Active 2024 Johnny Sanchez MD [address], [place], [address] , [facility] 5 14:34:25 Problem Notes None recorded. Procedures Surgical History Date Name Laterality Status Provider Name and Address Organization Details Recorded Time 05/02/19 total replacement of left hip joint completed Not Available [facility] 06/30/2022 14:44:56 05/02/19 total replacement of right hip joint completed Not Available [facility] 06/30/2022 14:44:56 Imaging Results Imaging Date Name Status LastModified by Organiz ation Details LastModified Time 08/21/2024 XR, cervical spine, 2 or 3 view completed [address] [facility] [address], [place], [address], 08/22/2024 16:38:28 Procedure Notes None recorded. Medical Equipment None Reported. Medications Name Sig Start Date Stop Date Status Note LastModified by Organization Details LastModified Time triamcinolo ne acetonide 0.5 % topical cream active Not Available Not Available Not Available valacyclovi r 1 gram tablet active Not Available Not Available Not Available hydrocodone 5 mg-acetamin ophen 325 mg tablet TAKE 1 TABLET BY MOUTH TWICE A DAY NEEDED FOR PAIN 09/26 completed Not Available Not Available Not Available flurbiprofe n 0.03 % eye drops INSTILL 1 DROP IN SURGICAL EYE 3 TIMES A DAY BEGIN 2 DAYS PRIOR TO SURGERY CONTINUE FOR 2 WKS AFTER 01/25 completed Not Available Not Available Not Available ondansetron HCl 8 mg tablet Take 1 tablet every 4 hours by oral route as needed for 2 days. active Not Available Not Available No t Available Zithromax Z-Krishan 250 mg tablet TAKE 2 TABLETS (500 MG) BY ORAL ROUTE ONCE DAILY FOR 1 DAY THEN 1 TABLET (250 MG) BY ORAL ROUTE ONCE DAILY FOR 4 DAYS 09/30 completed Not Available Not Available Not Available tramadol 50 mg tablet Take 1 tablet every 6 hours by oral route as needed for 4 days. 05/30 completed Not Available Not Available Not Available sildenafil 100 mg tablet Take 1 tablet every day by oral route as needed for 10 days. 09/06 completed Not Available Not Available Not Available meloxicam 7.5 mg tablet TAKE 1 TABLET BY MOUTH EVERY DAY active Not Available Not Available No t Available prednisolon e acetate 1 % eye drops,suspe nsion INSTILL 1 DROP 3 TIMES A DAY INTO SURGICAL EYE. BEGIN AFTER SURGERY AND CONTINUE FOR 3 WEEKS 01/25 completed Not Available Not Available Not Available tamsulosin 0.4 mg capsule TAKE 1 CAPSULE BY MOUTH EVERYDAY AT BEDTIME active Not Available Not Available No t Available ciprofloxac in 0.3 % eye drops INSTILL 1 DROP IN SURGICAL EYE 3 TIMES A DAY BEGIN 2 DAYS PRIOR TO SURGERY CONTINUE FOR 1 WEEK AFTER 01/25 completed Not Available Not Available Not Available Kenalog 10 mg/mL suspension for injection In office injection administe red by the provider 06/23 completed NDC: 0003- 0494- 20 Not Available Not Available Not Available diclofenac sodium 75 mg tablet,leia yed release Take 1 tablet twice a day by oral route. 06/23 completed Not Available Not Available Not Available methylpredn isolone 4 mg tablets in a dose pack take as directed 03/15 completed Not Available Not Available Not Available dicyclomine 10 mg capsule active Not Available Not Available Not Available lidocaine (PF) 10 mg/mL (1 %) injection solution In office injection administe red by the provider 06/23 completed NDC: 0409- 4276- 17 Not Available Not Available Not Available Suprep Bowel Prep Kit 17.5 gram-3.13 gram-1.6 gram oral solution 05/30 completed Not Available Not Available Not Available Vicodin 5 mg-300 mg tablet active Not Available Not Available Not Available Vitals Date Recorded Body height Body mass index (BMI) Body weight Body temperature Heart rate Oxygen saturation Oxygen saturation in Arterial blood by Pulse oximetry Systolic blood pressure Diastolic blood pressure Provider Name and Address Organization Details Last Updated DateTime 4 175.26 cm 28.1 kg/m2 11055.5 5 g 97.7 [degF] 75 /min 98 % 98 % 124 mm[Hg] 80 mm[Hg] Sonam flores Ponce [facility] 4 16:03:24 Date Recorded Body height Body mass index (BMI) Body weight Body temperature Heart rate Respiratory rate Oxygen saturation Oxygen saturation in Arterial blood by Pulse oximetry Systolic blood pressure Diastolic blood pressure Provider Name and Address Organization Details Last Updated DateTime 4 175.26 cm 26 kg/m2 02789.2 6 g 98.1 [degF] 74 /min 16 /min 99 % 99 % 132 mm[Hg] 78 mm[Hg] Selina Henderson MA [facility] 4 14:30:00 Date Recorded Body height Body mass index (BMI) Body weight Body temperature Heart rate Oxygen saturation Oxygen saturation in Arterial blood by Pulse oximetry Systolic blood pressure Diastolic blood pressure Provider Name and Address Organization Details Last Updated DateTime 4 175.26 cm 25.4 kg/m2 56158.8 9 g 97.6 [degF] 66 /min 98 % 98 % 130 mm[Hg] 70 mm[Hg] Sonam flores [place] [facility] 4 14:55:25 Date Recorded Body height Body mass index (BMI) Body weight Body temperature Heart rate Oxygen saturation Oxygen saturation in Arterial blood by Pulse oximetry Systolic blood pressure Diastolic blood pressure Provider Name and Address Organization Details Last Updated DateTime 5 175.26 cm 25.8 kg/m2 31659.6 6 g 97.7 [degF] 77 /min 99 % 99 % 118 mm[Hg] 76 mm[Hg] Sonam flores [place] [place] [facility] 5 14:07:16 Date Recorded Body height Body mass index (BMI) Body weight Body temperature Heart rate Oxygen saturation Oxygen saturation in Arterial blood by Pulse oximetry Systolic blood pressure Diastolic blood pressure Provider Name and Address Organization Details Last Updated DateTime 5 175.26 cm 26 kg/m2 29863.2 6 g 97.6 [degF] 82 /min 98 % 98 % 120 mm[Hg] 80 mm[Hg] MAYNOR Corral [place] [facility] [place] [employer] [facility] 5 12:21:38 Social History Question Answer Notes LastModified by Organizat ion Details LastModified Time What Is Your Level Of Alcohol Consumption? Moderate [id number] Information not available 06/30/2022 What Is Your Occupation? N/a [id number] Information not available 06/30/2022 How Much Tobacco Do You Smoke? No [id number] Information not available 06/30/2022 Sex: Unknown Functional Status None recorded. Mental Status None recorded. Family History Nothing Reported. Medical History No medical history recorded. Past Encounters Encounter ID Performer Location Encounter Start Date Encounter Closed Date Diagnosis/Indication Diagnosis SNOMED-CT Code Diagnosis ICD10 Code Diagnosis Note [id number] GONZÁLEZ Vazquez [facility] [address] [address] 09/30/2020 00:00:00 09/30/2020 10:21:01 [id number] Johnny Sanchez MD [facility] [address] [place] [address] 06/23/2023 14:57:39 06/23/2023 16:32:05 Closed fracture of hip 362329731 S72.001A no surgery, getting PT/OT Hypokalemia 25313292 E87 .6 better with otc Alcoholism 3973347 F10.2 0 has quit 10 days agoaa or rehab discussed, not willing Thrombocyt openic disorder 549862097 D69.6 likely related to alcohol Liver func tion tests outside reference range 824579602 R94.5 due to alcohol Essential hypertension 80944457 I10 bp is coming down, 144/80 Anemia 632377614 D64.9 needs more w/u Contusion of lower leg 45304395 S80.10XA asymptomat ic [id number] Johnny Sanchez MD [facility] Internal [facility] [address] [place] [address] 07/21/2023 15:32:13 07/21/2023 16:33:55 Essential hypertension 98918618 I10 bp much better History of alcoholism 16 0068636 F10.21 sober Urinary incontinence 165 835161 R32 [id number] Johnny Sanchez MD [facility] Internal [facility] [address] [place] [address] 09/27/2023 14:17:58 09/27/2023 15:09:22 Hypokalemia 74536141 E87.6 better with otc Alcoholism 1646370 F10.2 0 has quit Thrombocyt openic disorder 410382729 D69.6 improved Liver func tion tests outside reference range 274903074 R94.5 labs Essential hypertension 16763558 I10 no meds needed Anemia 482977667 D64.9 improved History of alcoholism 16 9478687 F10.21 sober Urinary incontinence 165 621920 R32 seen urology Adult [facility] th examination 467464136 Z00.00 Colonoscop y- Had one about 4 yrs ago. Pt states that he is due to polypPSA- DUEFLU- NEVERCOVID - Had the first 2 vaccinePne umovax- NEVERPrevn ar 13- Screening for malignant neoplasm of prostate 391963417 Z12.5 Screening for malignant neoplasm of colon 643640633 Z12.11 [id number] Johnny Sanchez MD [facility] Internal Med [address] [place] [address] 01/26/2024 14:36:25 01/26/2024 15:17:48 Hypokalemia 82655306 E87.6 better with otc Alcoholism 0272341 F10.2 0 sober Thrombocyt openic disorder 936282815 D69.6 improved Liver func tion tests outside reference range 168769175 R94.5 improved Essential hypertension 42035074 I10 no meds needed Anemia 963613564 D64.9 improved History of alcoholism 16 5593986 F10.21 sober Urinary incontinence 165 530695 R32 seen urology and better Adult heal th examination 048201713 Z00.00 Colonoscop y- 11/16/2023 PSA- 09/28/2023 FLU- DECLINED- OVID- Had the first 2 vaccinePne umovax- NEVERPrevn ar 13- [id number] Johnny Sanchez MD [facility] Internal Med [address] [place] [address] 07/25/2024 14:01:32 07/25/2024 14:47:46 Essential hypertension 50125209 I10 no meds needed Thrombocyt openic disorder 518969631 D69.6 improved Hypokalemia 44829328 E87 .6 better with otc Alcoholism 2580613 F10.2 0 sober for a year Liver func tion tests outside reference range 047876784 R94.5 improved Anemia 136223870 D64.9 improved History of alcoholism 16 6212331 F10.21 sober Urinary incontinence 165 304180 R32 seen urology and better Adult [facility] examination 280912998 Z00.00 Colonoscop y- 11/16/2023 PSA- 09/28/2023 FLU- DECLINED- 4COVID- Had the first 2 vaccinePne umovax- NEVERPrevn ar 13- Urinary symptoms 3780453 08 R39.9 Neck pain 62859088 M54.2 Abdominal pain 06395625 R10.9 [id number] Johnny Sanchez MD [facility] Internal Med [address] [place] [address] 08/23/2024 12:11:12 08/23/2024 12:40:43 Neck pain 58299282 M54.2 neck stretching , heating pad, meds Abdominal pain 32769966 R10.9 needs more evaluation as pain is getting worse, had previous surgeries Health Concerns Section Related Observation LastModified by Organization Detai ls LastModified Time None Recorded Concern Status LastModified by Organization Details LastModified Time None Recorded Advance Directives Directive None Recorded Payers Encounter Date Sequence Insurance Name Policy Number Policy Morales Covered Member ID Morales Member ID Guarantor Name 07/21/2023 1 [place] [id number] Dalton Pinto [id number] Dalton Pinto 09/27/2023 1 [place] [id number] Dalton Pinto [id number] Dalton Alonzoan 01/26/2024 1 [place] [id number] Dalton Alonzoan [id number] Dalton Alonzoan 07/25/2024 1 [place] [id number] Dalton Alonzoan [id number] Dalton Alonzoan 08/23/2024 1 [place] [id number] Dalton Pinto [id number] Dalton Pinto Notes Date Note Type Note Provider Name and Address Organization Details Recorded Time 07/21/2023 text/html Pt is here today for his 1 month follow upBlood pressure last OV was 162/80, Today it is 124/80Has lost 30lbs since 2020, appetite is goodno cp or sob LAST OFFICE NOTE: 4Pt is here today for a hospital follow up. He is also a New/Old pt. He is here today with his daughterWorried he has Parkinson's, (mother had it)He was admitted to [facility] 06/16 for right hip pain.Has a history of alcohol abuse and was given Librium while in the hospital (HE IS 10 DAYS SOBER) encouraged to keep that mentalityHe lost his balance after stepping off a curb and landed on his right hip. Has a right Femur fracture.Has been doing PT/OT 3 times a weekHas a history of bilateral hip replacement. [facility] [place] [facility]/325mg for his painHas been taking Potassium and a stool softer OTC for constipationHe has quit days agoproblem with sleep Johnny Sanchez MD [address] [facility] [address] [place] [place], [address], [facility] 07/21/2023 16:29:09 09/27/2023 text/html He is here today for his routine follow up Has been having bilateral Low back pain and thinks it might be his kidneys, Has been drinking a lot of water. Has had kidney stones in the past Hypertension- good with out meds Hip pain- Right hip was broken back in 06/13/23 was on Hydrocodone but does not take it anymore Thrombocytopenia- Platlets were 202 (08/2023) Hypertriglyceridemia- Hypokalemia- On OTC potassium Last potassium was 4.1 (06/24/23) Alcoholism- Stopped drinking back in 06/2023 Clean for 106 days Anemia- Taking OTC Iron 65mg Urinary Incontinence- Has seen Urology and is on medMeds- Tamsulosin 0.4mg HS Obesity- has lost 14lbs - Has been working out Takes multiple vitamins- Vitamin D3, Vit B1, Vitamin C, glucosamine Condroitin, Folic acid, Multi vitamin [place] 3 and Potassium Johnny Sanchez MD [address], [place], [address], [facility] 09/27/2023 15:04:36 01/26/2024 text/html He is here today for his routine follow upPT IS NOT FASTING Hypertension- good with out meds Hip pain- Right hip was broken back in 06/13/23 was on Hydrocodone but does not take it anymore Thrombocytopenia- Platlets were 202 (08/2023) Hypertriglyceridemia- watching diet Hypokalemia- On OTC potassium Last potassium was 4.1 (06/24/23) Alcoholism- Stopped drinking back in 06/2023 Clean for 106 days Anemia- no longer takes iron daily, only takes 1 once a week Urinary Incontinence- Has seen Urology and is on medsMeds- Tamsulosin 0.4mg HS Obesity- has lost 4lbs - Has been working out Takes multiple vitamins- Vitamin D3, Folic acid, Multi vitamin [place] 3 Johnny Sanchez MD [address], [place], [address], [facility] 01/26/2024 15:16:32 07/25/2024 text/html He is here today for his routine follow upPT IS NOT FASTING ( [employer] ) C/o neck pain, Has been going on for a few months but not getting better and pops every time he turns his head. Hes starting to get worried about it. Sometimes shoots a pain in his head.No known injuryNo radiation Would also liked his kidneys looked at, Has some back pain Hypertension- good without meds Hip pain- Right hip was broken back in 06/13/23 was on Hydrocodone but does not take it anymore Thrombocytopenia- Platlets were 202 (08/2023) Hypertriglyceridemia- watching diet, improvedMeds- Fish Oil OTC Hypokalemia- No longer takes potassium Last potassium was 4.4 (09/28/23) Alcoholism- Stopped drinking back in 06/2023 Anemia- no longer takes iron daily, only takes 1 once a week, mild Urinary Incontinence- Has seen Urology and is on medsMeds- Tamsulosin 0.4mg HS Takes multiple vitamins- Vitamin D3, Folic acid, Johnny Sanchez MD [address], [place], [address], [facility] 07/25/2024 14:37:15 08/23/2024 text/html Pt is here today to discuss test results. Still C/o neck pain.x rays showed mild arthritis Also C/o pelvic, abdomen and low back pain.pain in the lower abd is getting worse, no change in BMLIFTING MAKES IT WORSE, FEELS LIKE SOME THING IS THEREno radiation but some times feels like pain radiating to the backno urine symptomsall the labs nlMay Needs a peer to peer with insurance to try and get CT approved by insurance Johnny Sanchez MD [address], [place], [address], [facility] 08/23/2024 12:36:06
--- OUTSIDE RECORDS SUMMARY | 2024-09-07 13:05 | XMS_ITS | CONTINUITY OF CARE DOCUMENT ---
Author Name ryan davis Address Unknown Organization [facility] Address [address] [address] [place] [address] Phone [phone] Care Team Providers Care Machine Hamper Maker Name Role Phone Agusto JUARES, Marleny Unavailable [phone] DAMON JUARES, KEYSHA Unavailable Laura JUARES, Johnny Mitchell Unavailable INSURANCE PROVIDERS Payer name Policy type / Coverage type [place] red green party ID [facility] [email or web address] insurance company [id number]
[2024-09-07 14:30] LABS: Estimated Glomerular Filt Rate > 60
== END 2024-09-07 13:03 | disposition home or self-care (01) ==
PROVIDERS: PCP Internal Medicine; Visit Provider Internal Medicine
DX: K42.9 Umbilical hernia without obstruction or gangrene (principal); K44.9 Diaphragmatic hernia without obstruction or gangrene
CPT/HCPCS: 74177; Q9967

== ENCOUNTER 2025-02-12 14:54 | Outpatient (CLI) | payer BC, SELFPAY ==
--- NOTE | ~2025-02-12 | US_ITS ---
EXAMINATION: US soft tissue groin LT, 02/12/2025 15:10 CDT HISTORY: LLQ Pain Comparison: 09/07/2024 CDT Technique: Wyatt-scale and color Doppler images were obtained FINDINGS: Correlating with the palpable area there is a large fat-containing hernia measuring 5.3 cm maximally which does not change significantly with Valsalva, the defect in the abdominal wall measures 0.9 cm. Adjacent to this area there is an area of echogenic shadowing which may represent bowel versus mesh incompletely characterized. IMPRESSION: Left lower quadrant hernia detailed above. Repeat CT with Valsalva is recommended Reviewed, dictated and finalized at location P.
== END 2025-02-12 14:55 | disposition home or self-care (01) ==
PROVIDERS: PCP Internal Medicine; Visit Provider Internal Medicine
DX: K46.9 Unspecified abdominal hernia without obstruction or gangrene (principal)
CPT/HCPCS: 76882

== ENCOUNTER 2025-03-03 09:05 | Outpatient (CLI) | payer BC, SELFPAY ==
--- NOTE | ~2025-03-03 | CT_ITS ---
EXAMINATION: CT abdomen pelvis w con DATE: 03/03/2025 09:46 INDICATION: Unspecified abdominal hernia without obstruction. TECHNIQUE: Computed tomography (CT) of the abdomen and pelvis was performed with 100 mL Omnipaque 350 intravenous contrast. Automated exposure control and iterative reconstruction technique were employed. The dose-length product was 522.58 mGy-cm. COMPARISON: CT abdomen and pelvis 09/07/24 FINDINGS: The visualized portions of lung bases demonstrate mild atelectasis. No pleural effusion. The heart size is normal. There are coronary artery calcifications. No pericardial effusion. There is a large sliding hiatal hernia. The liver, gallbladder, spleen, pancreas, and adrenal glands are normal. There is cortical thinning of the kidneys. There is an 8 mm cyst in right kidney. There are no dilated loops of bowel. There are changes of appendectomy. There are two supraumbilical ventral hernias containing fat. There are changes of infraumbilical hernia repair. There are no pathologically enlarged lymph nodes. There is no free intraperitoneal fluid. There are likely changes of left inguinal hernia repair. There are bilateral total hip arthroplasties. There is mild chronic anterior wedging of multiple thoracic vertebral bodies. There are chronic bilateral L5 pars defects. There is 3 mm anterolisthesis of L5 on S1. There is mild thoracic spondylosis and severe lumbar spondylosis. IMPRESSION: 1. Large sliding hiatal hernia. 2. Two supraumbilical ventral hernias containing fat. Reviewed, dictated and finalized at location E. ET ASSEMBLER
[2025-03-03 09:28] LABS: Estimated Glomerular Filt Rate > 60
== END 2025-03-03 09:06 | disposition home or self-care (01) ==
PROVIDERS: PCP Internal Medicine; Visit Provider Internal Medicine
DX: K44.9 Diaphragmatic hernia without obstruction or gangrene (principal); K43.9 Ventral hernia without obstruction or gangrene
CPT/HCPCS: 74177; Q9967